=== PATIENT | female | born 1935 | race Two or more races ===

== ENCOUNTER 2021-09-14 13:17 | Inpatient (IN) | payer MEDICARE, OTHER ==
[~2021-09-14] VITALS: Ht 160 cm; Wt 59.0 kg
--- NOTE | 2021-09-14 13:35 | NUR ---
[id number] FROM [facility] C/O WEAKNESS, PER EMS [employer] CALLED THEM TO DIRECTOR SALES WHO'S BEEN WANDERING AROUND APARTMENT X2 DAYS. PLACED COMFORTABLY IN BED. VITALS CHECKED.
--- NOTE | 2021-09-14 14:00 | NUR ---
DR ANTUNEZ MADE AWARE ABOUT BRIEF HX OF PATIENT
[2021-09-14] MEDS ORDERED: PANT40TA49 PO (14:04)
[2021-09-14] MEDS ORDERED: LEVO75TA7 PO (14:04)
[2021-09-14] MEDS ORDERED: TENO300T5 PO (14:04)
[2021-09-14] MEDS ORDERED: POTA20TA83 PO (14:04)
[2021-09-14] MEDS ORDERED: FURO20TA4 PO (14:04)
[2021-09-14] MEDS ORDERED: METO-358 PO (14:04)
[2021-09-14] MEDS ORDERED: LISI40TA13 PO (14:04)
[2021-09-14] MEDS ORDERED: AMLO-212 PO (14:04)
--- NOTE | 2021-09-14 14:11 | NUR ---
IV CANNULA G22 INSERTED ON LEFT UPPER ARM.
--- NOTE | 2021-09-14 14:11 | NUR ---
COVID SWAB DONE
--- NOTE | 2021-09-14 14:13 | NUR ---
Luciano nj in [facility] - 09/14/21 at 1438 by RANJIT SEEN BY DR SANDOVAL AT BEDSIDE.
--- NOTE | 2021-09-14 14:30 | NUR ---
EKG DONE AT BEDSIDE.
--- NOTE | 2021-09-14 14:39 | NUR ---
PRESSURE TESTER OPERATOR AT BEDSIDE
--- NOTE | 2021-09-14 15:00 | NUR ---
CAME BACK FROM CT SCAN
[2021-09-14 15:02] LABS: BASOPHILS % (AUTO) 0.6 % (0.0-2.0); EOSINOPHILS % (AUTO) 2.9 % (0.0-6.0); HEMATOCRIT 34 % (33-45); HEMOGLOBIN 11.5 g/dL (11.5-14.8); LYMPHOCYTES # (AUTO) 0.7 K/uL (0.8-4.8); LYMPHOCYTES % (AUTO) 16.4 % (20.0-44.0); MEAN CORPUSCULAR HGB CONC 34 g/dl (31.0-36.0); MEAN CORPUSCULAR VOLUME 91 fL (82-100); MONOCYTES # (AUTO) 0.5 K/uL (0.1-1.30); MONOCYTES % (AUTO) 11.4 % (2.0-12.0); NEUTROPHILS # (AUTO) 2.8 K/uL (1.8-8.9); NEUTROPHILS % (AUTO) 68.7 % (43.0-81.0); PLATELET COUNT (AUTO) 96 K/uL (150-450); RED BLOOD CELL COUNT(AUTO) 3.71 MIL/uL (4.0-5.2)
[2021-09-14 15:08] LABS: CALCIUM, SERUM 8.7 mg/dL (8.5-10.1); CARBON DIOXIDE 24 mmol/L (21-32); CHLORIDE 108 mmol/L (98-107); CREATININE 0.8 mg/dL (0.6-1.3); GLUCOSE 128 mg/dL (74-106); POTASSIUM 3.8 mmol/L (3.5-5.1); SODIUM SERUM 142 mmol/L (136-145); UREA NITROGEN, BLOOD 19 mg/dL (7-18)
[2021-09-14 15:14] LABS: ALANINE AMINOTRANSFERASE 15 U/L (12-78); ALBUMIN 3.5 g/dL (3.4-5.0); ALKALINE PHOSPHATASE 63 U/L (46-116); ASPARTATE AMINOTRANSFERASE 26 U/L (15-37); BILIRUBIN,DIRECT 0.2 mg/dL (0.0-0.2); BILIRUBIN,TOTAL 0.7 mg/dL (0.2-1.0); TOTAL PROTEIN, SERUM 6.6 g/dL (6.4-8.2)
[2021-09-14 16:33] LABS: BAND % (MANUAL) 2 % (0.0-5.0); LYMPHOCYTES % (MANUAL) 16 % (16-48)
[2021-09-14 16:34] LABS: EOSINOPHILS % (MANUAL) 3 % (0-4); MONOCYTES % (MANUAL) 10 % (0-11.0)
[2021-09-14 16:35] LABS: NEUTROPHILS % (MANUAL) 69 (42-76)
[2021-09-14 17:11] LABS: BILIRUBIN,URINE NEGATIVE (NEGATIVE); COLOR,URINE YELLOW (YELLOW); LEUKOCYTE ESTERASE ,URINE SMALL (NEGATIVE); NITRITE, URINE NEGATIVE (NEGATIVE); PH,URINE 7.5 (5.0-8.0); PROTEIN,URINE NEGATIVE (NEGATIVE); UGLUCOSE NEGATIVE (NEGATIVE); UROBILINOGEN,URINE 0.2 EU/dL (0.2)
[2021-09-14 17:16] LABS: BACTERIA,URINE Few /HPF (None Seen)
[2021-09-14 17:17] LABS: SQUAMOUS EPITHELIAL CELL,UR Few /HPF (None Seen)
--- NOTE | 2021-09-14 17:40 | NUR ---
SEEN BY YUSUF HEART AT BEDSIDE.
[2021-09-14] MEDS ORDERED: ACETAMINOPHEN 325 MG TABLET PO PRN (18:00)
[2021-09-14] MEDS ORDERED: CEFTRIAXONE 1GM BAG (ER ONLY) 1 GM/50 ML PIGGYBACK IV ONE (18:00)
[2021-09-14] MEDS ORDERED: ONDANSETRON HCL/PF 4 MG/2 ML VIAL IVP PRN (18:00)
[2021-09-14] MEDS ORDERED: MORPHINE SULFATE INJ 2 MG/ML DISP.SYRIN IV PRN (18:00)
[2021-09-14] MEDS ORDERED: HYDROCODONE/APAP 5/325MG TABLET PO PRN (18:00)
[2021-09-14] MEDS ORDERED: ZOLPIDEM TARTRATE 5 MG TABLET PO PRN (18:00)
[2021-09-14] MEDS ORDERED: MAG HYDROX/AL HYDROX/SIMETH 30 ML UDC PO PRN (18:00)
[2021-09-14] MEDS ORDERED: MAGNESIUM HYDROXIDE 30 ML UDC PO PRN (18:00)
[2021-09-14] MEDS ORDERED: Z GUARD REMEDY 4 OZ OINT TP PRN (18:00)
--- NOTE | 2021-09-14 19:09 | NUR ---
PATIENT IS CONFUSED AND TRIED TO LEAVE
[2021-09-14] MEDS: LORAZEPAM INJ 2 MG/ML VIAL IV PRN (19:26)
--- NOTE | 2021-09-14 19:27 | NUR ---
PT NOTED WITH AGGITATION AND YELLING; NONPHARM INTERVENTIONS DONE BUT STILL AGGITATED. ATIVAN 1MG IVP RAC #22G S/L ADMINISTERED
[2021-09-14] MEDS ORDERED: ENOXAPARIN SODIUM 30 MG/0.3 ML DISP.SYRIN SQ SCH (19:47)
[2021-09-14] MEDS ORDERED: CEFTRIAXONE 1GM BAG (ER ONLY) 50 ML IV ONE (19:51)
[2021-09-14] MEDS ORDERED: ENOXAPARIN SODIUM 30 MG/0.3 ML DISP.SYRIN ONE (19:51)
[2021-09-14] MEDS ORDERED: FUROSEMIDE 40 MG/4 ML VIAL ONE (19:52)
[2021-09-14] MEDS ORDERED: METOPROLOL SUCCINATE 25 MG TAB.SR.24H ONE (19:52)
[2021-09-14] MEDS: CEFTRIAXONE 1 G in IV D5W 50 ML IV SCH (20:00)
[2021-09-14] MEDS: FUROSEMIDE 40 MG/4 ML VIAL IV SCH (20:00)
[2021-09-14] MEDS: METOPROLOL SUCCINATE 50 MG TAB.SR.24H PO SCH (20:00)
--- NOTE | 2021-09-14 20:38 | NUR ---
Raul [phone] (son)
--- NOTE | 2021-09-14 20:38 | NUR ---
PT SON AND DAUGHTER IN LAW UPDATE REGARDING THE PATIENT. THEY ARE AWARE THAT THE PATIENT IS GOING TO BE ADMITTED.
--- NOTE | 2021-09-14 20:56 | NUR ---
REPORT GIVEN TO BHARATH TEE.
[2021-09-14 21:10] VITALS: BP 160/81
--- NOTE | 2021-09-14 21:30 | NUR ---
MS RN NOTES ATTEMPTED TO CALL SON, , NO ANSWER; VOICEMAIL WAS LEFT FOR SON TO CALL HOSPITAL BACK, CHARGE NURSE MADE AWARE; UNABLE TO OBTAIN INFORMATION FROM PATIENT D/T MENTAL STATUS; WILL CONT TO MONITOR;
--- NOTE | 2021-09-14 21:31 | NUR ---
MEDICAL STAFF SPECIALIST/OPENING NOTE PATIENT ARRIVED TO UNIT ACCOMPANIED BY ER STAFF, AWAKE, CONFUSED AND AGITATED, YELLING IN TAGALOG; ANGRY AT STAFF; PATIENT ON ROOM AIR WITH NO SIGNS OF LABORED BREATHING, LEFT UPPER ARM 22G IV IN PLACE; NO SIGNS OF ACUTE DISTRESS NOTED AT THIS TIME. BLE EDEMA NOTED, R ARM DISCOLORATION AND SACRAL REDNESS POA; PICTURES TAKEN AND PLACED IN CHART; SAFETY PRECAUTIONS IMPLEMENTED; BED LOCKED AND IN LOWEST POSITION, 3 SIDE RAILS UP, WILL CONT TO MONITOR
--- NOTE | 2021-09-14 22:51 | NUR ---
MS RN NOTE PATIENT CONFUSED, AGITATED, REMOVING IV LINES AND CLOTHES; CONSTANTLY YELLING OUT AT STAFF; CHARGE NURSE AWARE; ASL INTERPRETER MD MADE AWARE, AWAITING MD ORDERS
--- NOTE | 2021-09-14 22:54 | NUR ---
MS RN NOTES PER GREEN CHAIN OFF BEARER YOLANDA SNOW FOR 1:1 SITTER, CHARGE NURSE MADE AWARE, NURSING HEARING AID TECHNICIAN MADE AWARE. WILL CONT TO MONITOR
--- NOTE | 2021-09-15 02:43 | NUR ---
MS RN NOTES PER MD YAKOV, YOLANDA FOR BILATERAL WRIST RESTRAINTS IF NO SITTER IS AVAILABLE; ORDES RENDERED AND CARRIED OUT, CHARGE NURSE MADE AWARE; WILL CONT TO MONITOR
--- NOTE | 2021-09-15 05:43 | NUR ---
MS RN NOTES TELESALES REPRESENTATIVE AT BEDSIDE, UNABLE TO DRAW BLOOD. PATIENT IS HARD STICK, WILL ATTEMPT AGAIN LATER; WILL INFORM DAY SHIFT
--- NOTE | 2021-09-15 06:13 | NUR ---
MS RN NOTES PATIENT HARD STICK, 2 HARD CANDY SPINNER ATTEMPTED, WILL TRY AGAIN LATER, WILL INFORM DAY SHIFT
--- NOTE | 2021-09-15 06:46 | NUR ---
RN CLOSING NOTES NOTE PATIENT IN BED, AWAKE, CONFUSED AND AGITATED, YELLING IN TAGALOG; YELLING OUT AT STAFF AND TO SELF; PATIENT ON ROOM AIR WITH NO SIGNS OF LABORED BREATHING, LEFT UPPER ARM 22G IV IN PLACE; NO SIGNS OF ACUTE DISTRESS NOTED AT THIS TIME. BLE EDEMA NOTED, BILATERAL SOFT WRIST RESTRAINTS APPLIED; ALL NEEDS RENDERED; SAFETY PRECAUTIONS IMPLEMENTED; BED LOCKED AND IN LOWEST POSITION, 3 SIDE RAILS UP, WILL ENDORSE SONAL TO ONCOMING SHIFT
--- NOTE | 2021-09-15 07:27 | NUR ---
RN OPENING NOTE- PATIENT IN BED, AWAKE; PATIENT ON ROOM AIR WITH NO SIGNS OF LABORED BREATHING, LEFT UPPER ARM 22G IV IN PLACE; NO SIGNS OF ACUTE DISTRESS NOTED AT THIS TIME. BLE EDEMA NOTED, BILATERAL SOFT WRIST RESTRAINTS IN PLACE .SAFETY PRECAUTIONS IMPLEMENTED; BED LOCKED AND IN LOWEST POSITION, MONITOR/ ASSIST
[2021-09-15 07:45] LABS: CALCIUM, SERUM 9.4 mg/dL (8.5-10.1); CREATININE 0.8 mg/dL (0.6-1.3); MAGNESIUM 2.3 mg/dL (1.8-2.4); PHOSPHORUS 3.2 mg/dL (2.5-4.9); POTASSIUM 3.5 mmol/L (3.5-5.1)
[2021-09-15 07:55] LABS: THYROID STIMULATING HORMONE 1.839 uIU/mL (0.358-3.74)
[2021-09-15] MEDS: LEVOTHYROXINE SODIUM 75 MCG TABLET PO SCH (08:00)
[2021-09-15] MEDS: PANTOPRAZOLE 40 MG TABLET.DR PO SCH (08:00)
[2021-09-15] MEDS: AMLODIPINE BESYLATE 5 MG TABLET PO SCH ×2 (08:28→08:48)
[2021-09-15] MEDS: FUROSEMIDE 40 MG/4 ML VIAL IV SCH ×2 (08:28→08:49)
[2021-09-15] MEDS: POTASSIUM CHLORIDE 20 MEQ TAB.PRT.SR PO SCH ×2 (08:28→08:48)
[2021-09-15 08:35] LABS: BASOPHILS % (AUTO) 0.6 % (0.0-2.0); HEMATOCRIT 40 % (33-45); HEMOGLOBIN 13.6 g/dL (11.5-14.8); LYMPHOCYTES # (AUTO) 0.7 K/uL (0.8-4.8); LYMPHOCYTES % (AUTO) 13.9 % (20.0-44.0); MEAN CORPUSCULAR HGB CONC 34 g/dl (31.0-36.0); MEAN CORPUSCULAR VOLUME 91 fL (82-100); MONOCYTES # (AUTO) 0.6 K/uL (0.1-1.30); MONOCYTES % (AUTO) 11.8 % (2.0-12.0); NEUTROPHILS # (AUTO) 3.5 K/uL (1.8-8.9); NEUTROPHILS % (AUTO) 70.7 % (43.0-81.0); PLATELET COUNT (AUTO) 91 K/uL (150-450); RED BLOOD CELL COUNT(AUTO) 4.37 MIL/uL (4.0-5.2)
[2021-09-15] MEDS: TENOFOVIR DISOPROXIL FUMARATE 300 MG TABLET PO SCH ×2 (08:35→08:49)
[2021-09-15 08:37] VITALS: BP 152/80
[2021-09-15] MEDS: QUETIAPINE FUMARATE 25 MG TABLET PO ONE ×2 (08:37→08:49)
[2021-09-15] MEDS ORDERED: FUROSEMIDE 20 MG TABLET PO SCH (09:00)
[2021-09-15] MEDS ORDERED: OLANZAPINE 10 MG VIAL IM ONE (09:00)
--- NOTE | 2021-09-15 09:33 | NUR ---
WOUND CARE CONSULT: DIFFICULT ASSESSMENT DUE TO PT VERY COMBATIVE. BLANCHABLE REDNESS NOTED TO SACRUM. PT KICKING AND SCRATCHING AT NURSES. PT IS INCONTINENT. RECOMMENDATIONS MADE FOR SKIN PROTECTION. DISCUSSED WITH NURSING STAFF. MD IN AGREEMENT WITH PLAN OF CARE.
[2021-09-15] MEDS: LORAZEPAM INJ 2 MG/ML VIAL IV PRN ×2 (12:47→21:19)
--- NOTE | 2021-09-15 12:50 | NUR ---
RN NOTE- ANXIOUS, YELLING , OPPOSITIONAL TO CARE. ATIVAN 1 MG ADMINISTERED IVP
[2021-09-15 16:14] VITALS: BP 150/78
[2021-09-15] MEDS: QUETIAPINE FUMARATE 25 MG TABLET PO SCH (16:21)
[2021-09-15] MEDS: METOPROLOL SUCCINATE 50 MG TAB.SR.24H PO SCH (17:31)
[2021-09-15] MEDS: CEFTRIAXONE 1 G in IV D5W 50 ML IV SCH (17:34)
--- NOTE | 2021-09-15 18:32 | NUR ---
RN CLOSING NOTE- PATIENT IN BED, ASLEEP; PATIENT ON ROOM AIR WITH NO SIGNS OF LABORED BREATHING, LEFT UPPER ARM 22G IV IN PLACE; NO SIGNS OF ACUTE DISTRESS NOTED AT THIS TIME. BLE EDEMA NOTED, BILATERAL SOFT WRIST RESTRAINTS IN PLACE .SAFETY PRECAUTIONS IMPLEMENTED; BED LOCKED AND IN LOWEST POSITION, MONITOR/ ASSIST
--- NOTE | 2021-09-15 19:20 | NUR ---
RN OPENING NOTE PATIENT IN BED, EYES CLOSED. PATIENT EASILY AWAKENED VIA VERBAL AND TOUCH STIMULI. PATIENT IS UNABLE TO MAKE NEEDS KNOWN, CONFUSED AND DISORIENTED. PATIENT MUMBLING IN TAGALOG. PATIENT IS ON RA, NO SOB, BREATHING EVEN AND UNLABORED. PATIENT HAS MICHAEL SOFT WRIST RESTRAINTS ON. NO INJURIES OR REDNESS NOTED. PATIENT HAS A BHAVNA G 22, SALINE LOCKED ONLY AND A DANIELITO MIDLINE PATIENT AND INTACT. PATIENT DOES NOT HAVE ANY PAIN AT THIS TIME VIA FLACC. SAFETY MEASURES IN PLACE: BED LOCKED AND IN LOWEST POSITION, CALL LIGHT WITHIN REACH, SIDE RAILS UP. WILL MONITOR PATIENT CLOSELY.
[2021-09-15 20:00] VITALS: BP 158/72
--- NOTE | 2021-09-15 23:17 | NUR ---
MS RN NOTES DR. QUIROS AT BEDSIDE FOR PSYCH CONSULT, UNABLE TO COMPLETE, PATIENT IS ASLEEP; PER MD, WILL BE BACK TOMORROW AM, CHARGE NURSE AWARE;
--- NOTE | 2021-09-15 23:30 | NUR ---
RN SONAL NOTE TRANSFERRED PATIENT CARE TO KRISTEL SINHA. PATIENT STABLE AT THIS TIME. NOT IN ANY APPARENT DISTRESS. VSS STABLE.
--- NOTE | 2021-09-15 23:32 | NUR ---
MS RN NOTES RECEIVED ENDORSEMENT FROM BHARATH SALINAS. WILL CONTINUE TO MONITOR
[2021-09-16 06:07] LABS: *BASOS 0 % (Not Estab.); *EOS 1 % (Not Estab.); *EOS, ABSOLUTE 0.1 x10E3/uL (0.0-0.4); *HCT 39.6 % (34.0-46.6); *HGB 13.4 g/dL (11.1-15.9); *IMMATURE GRANULOCYTES 0 % (Not Estab.); *LYMPHOCYTES 14 % (Not Estab.); *LYMPHS, ABSOLUTE 0.7 x10E3/uL (0.7-3.1); *MCH 30.5 pg (26.6-33.0); *MCHC 33.8 g/dL (31.5-35.7); *MCV 90 fL (79-97); *MONOCYTES 12 % (Not Estab.); *MONOS, ABSOLUTE 0.6 x10E3/uL (0.1-0.9); *NEUTROPHILS 73 % (Not Estab.); *NEUTROPHILS, ABSOLUTE 3.5 x10E3/uL (1.4-7.0); *PLT 110 x10E3/uL (150-450); *RDW 13.8 % (11.7-15.4)
--- NOTE | 2021-09-16 07:08 | NUR ---
RN CLOSING NOTES NOTE PATIENT IN BED, SLEEPING; PATIENT ON ROOM AIR WITH NO SIGNS OF LABORED BREATHING, LEFT UPPER ARM 22G IV IN PLACE; DANIELITO #18 MIDLINE; NO SIGNS OF ACUTE DISTRESS NOTED AT THIS TIME. BLE EDEMA NOTED, BILATERAL SOFT WRIST RESTRAINTS APPLIED; SKIN CHECKS DONE, ALL NEEDS RENDERED; SAFETY PRECAUTIONS IMPLEMENTED; BED LOCKED AND IN LOWEST POSITION, 3 SIDE RAILS UP, WILL ENDORSE SONAL TO ONCOMING SHIFT
[2021-09-16 08:00] VITALS: BP 120/82
[2021-09-16 10:08] LABS: *% CD 4 POS. LYMPH 34.6 % (30.8-58.5); *% CD 8 POS. LYMPH 19.9 % (12.0-35.5); *ABSOLUTE CD 4 HELPER 242 /uL (359-1519); *ABSOLUTE CD 8 SUPPRESSOR 139 /uL (109-897); *CD4/CD8 RATIO 1.74 (0.92-3.72)
[2021-09-16] MEDS: POTASSIUM CHLORIDE 20 MEQ TAB.PRT.SR PO SCH (11:00)
[2021-09-16] MEDS: LEVOTHYROXINE SODIUM 75 MCG TABLET PO SCH (11:00)
[2021-09-16] MEDS: TENOFOVIR DISOPROXIL FUMARATE 300 MG TABLET PO SCH (11:00)
[2021-09-16] MEDS: PANTOPRAZOLE 40 MG TABLET.DR PO SCH (11:00)
[2021-09-16] MEDS: AMLODIPINE BESYLATE 5 MG TABLET PO SCH (11:03)
[2021-09-16] MEDS: QUETIAPINE FUMARATE 25 MG TABLET PO SCH (11:04)
--- NOTE | 2021-09-16 13:54 | NUR ---
ivon iv infiltrated and removed.
[2021-09-16 16:00] VITALS: BP 141/78
[2021-09-16] MEDS ORDERED: risperiDONE 0.25 MG TABLET PO SCH (17:30)
[2021-09-16] MEDS ORDERED: HALOPERIDOL LACTATE INJ 5 MG/ML VIAL IM PRN (17:30)
[2021-09-16] MEDS ORDERED: RIVASTIGMINE TARTRATE 1.5 MG CAPSULE PO SCH (17:30)
[2021-09-16] MEDS ORDERED: HALOPERIDOL 1 MG TABLET PO PRN (17:30)
--- NOTE | 2021-09-16 18:00 | NUR ---
DR. QUIROS IN AND MADE MED CHANGES.
--- NOTE | 2021-09-16 19:44 | NUR ---
RN OPENING NOTE PATIENT IN BED, SLEEPING; PATIENT ON ROOM AIR WITH NO SIGNS OF LABORED BREATHING, LEFT UPPER ARM 22G IV IN PLACE; DANIELITO #18 MIDLINE; NO SIGNS OF ACUTE DISTRESS NOTED AT THIS TIME. BLE EDEMA NOTED, BILATERAL SOFT WRIST RESTRAINTS APPLIED; SKIN CHECKS DONE, ALL NEEDS RENDERED; SAFETY PRECAUTIONS IMPLEMENTED; BED LOCKED AND IN LOWEST POSITION, 3 SIDE RAILS UP, WILL CONTINUE TO MONITOR.
[2021-09-16] MEDS: CEFTRIAXONE 1 G in IV D5W 50 ML IV SCH (19:48)
[2021-09-16] MEDS: RIVASTIGMINE TARTRATE 1.5 MG CAPSULE PO SCH (20:00)
[2021-09-16] MEDS: risperiDONE 0.25 MG TABLET PO SCH (20:00)
[2021-09-16 20:26] VITALS: BP 140/62
[2021-09-16] MEDS: MIRTAZAPINE 15 MG TABLET PO SCH (21:39)
[2021-09-16] MEDS: METOPROLOL SUCCINATE 50 MG TAB.SR.24H PO SCH (21:39)
[2021-09-17 00:51] VITALS: BP 137/69
--- NOTE | 2021-09-17 05:48 | NUR ---
MS RN NOTES MEDICATION WAS CRUSHED AND TRIED TO ADMINISTER PT REFUSING SAYING SHE NO LONGER HAS PAIN DISCARDED MEDICATION WITH SECOND RN ISABELLE. ALL NEEDS ATTENDED TO WILL CONTINUE TO MONITOR.
[2021-09-17 06:31] LABS: BASOPHILS # (AUTO) 0.1 K/uL (0.0-0.2); BASOPHILS % (AUTO) 0.9 % (0.0-2.0); EOSINOPHILS % (AUTO) 0.1 % (0.0-6.0); HEMATOCRIT 38 % (33-45); HEMOGLOBIN 12.8 g/dL (11.5-14.8); LYMPHOCYTES # (AUTO) 0.8 K/uL (0.8-4.8); LYMPHOCYTES % (AUTO) 9.9 % (20.0-44.0); MEAN CORPUSCULAR HGB CONC 34 g/dl (31.0-36.0); MEAN CORPUSCULAR VOLUME 91 fL (82-100); MONOCYTES # (AUTO) 1.5 K/uL (0.1-1.30); MONOCYTES % (AUTO) 18.7 % (2.0-12.0); NEUTROPHILS # (AUTO) 5.7 K/uL (1.8-8.9); NEUTROPHILS % (AUTO) 70.4 % (43.0-81.0); PLATELET COUNT (AUTO) 125 K/uL (150-450); RED BLOOD CELL COUNT(AUTO) 4.16 MIL/uL (4.0-5.2); WHITE BLOOD COUNT (AUTO) 8.1 K/uL (4.3-11.0)
[2021-09-17 06:59] LABS: CALCIUM, SERUM 8.9 mg/dL (8.5-10.1); POTASSIUM 4.5 mmol/L (3.5-5.1)
--- NOTE | 2021-09-17 07:03 | NUR ---
RN CLOSING NOTE PATIENT IN BED, SLEEPING; PATIENT ON ROOM AIR WITH NO SIGNS OF LABORED BREATHING, LEFT UPPER ARM 22G IV IN PLACE; DANIELITO #18 MIDLINE; NO SIGNS OF ACUTE DISTRESS NOTED AT THIS TIME. BLE EDEMA NOTED, BILATERAL SOFT WRIST RESTRAINTS APPLIED; SKIN CHECKS DONE, ALL NEEDS RENDERED; SAFETY PRECAUTIONS IMPLEMENTED; BED LOCKED AND IN LOWEST POSITION, 3 SIDE RAILS UP, WILL ENDORSE CARE TO DAY SHIFT NURSE.
[2021-09-17] MEDS: AMLODIPINE BESYLATE 5 MG TABLET PO SCH (07:52)
[2021-09-17] MEDS: LEVOTHYROXINE SODIUM 75 MCG TABLET PO SCH (07:53)
[2021-09-17] MEDS: risperiDONE 0.25 MG TABLET PO SCH ×2 (07:53→20:04)
[2021-09-17] MEDS: PANTOPRAZOLE 40 MG TABLET.DR PO SCH (07:53)
[2021-09-17] MEDS: POTASSIUM CHLORIDE 20 MEQ TAB.PRT.SR PO SCH (07:53)
[2021-09-17] MEDS: RIVASTIGMINE TARTRATE 1.5 MG CAPSULE PO SCH ×2 (07:53→20:04)
[2021-09-17] MEDS: TENOFOVIR DISOPROXIL FUMARATE 300 MG TABLET PO SCH (07:55)
[2021-09-17 08:00] VITALS: BP 146/82
[2021-09-17 08:25] LABS: LYMPHOCYTES % (MANUAL) 9 % (16-48); MONOCYTES % (MANUAL) 17 % (0-11.0); NEUTROPHILS % (MANUAL) 74 (42-76)
[2021-09-17] MEDS ORDERED: risperiDONE 0.25 MG TABLET PO SCH (09:00)
[2021-09-17 16:00] VITALS: BP 142/67
[2021-09-17] MEDS: CEFTRIAXONE 1 G in IV D5W 50 ML IV SCH (18:17)
--- NOTE | 2021-09-17 18:29 | NUR ---
yelling out from time to time.
--- NOTE | 2021-09-17 19:43 | NUR ---
RN OPENING NOTE PATIENT IN BED, SLEEPING; PATIENT ON ROOM AIR WITH NO SIGNS OF LABORED BREATHING, LEFT UPPER ARM 22G IV IN PLACE; DANIELITO #18 MIDLINE; NO SIGNS OF ACUTE DISTRESS NOTED AT THIS TIME. BLE EDEMA NOTED, BILATERAL SOFT WRIST RESTRAINTS APPLIED; SKIN CHECKS WILL BE DON. SAFETY PRECAUTIONS IMPLEMENTED; BED LOCKED AND IN LOWEST POSITION, 3 SIDE RAILS UP, WILL CONTINUE TO MONITOR.
[2021-09-17 20:00] VITALS: BP 139/61
[2021-09-17] MEDS: METOPROLOL SUCCINATE 50 MG TAB.SR.24H PO SCH (20:08)
[2021-09-17] MEDS: MIRTAZAPINE 15 MG TABLET PO SCH (22:11)
--- NOTE | 2021-09-18 06:38 | NUR ---
RN CLOSING NOTE PATIENT IN BED, SLEEPING; PATIENT ON ROOM AIR WITH NO SIGNS OF LABORED BREATHING, DANIELITO #18 MIDLINE; NO SIGNS OF ACUTE DISTRESS NOTED AT THIS TIME, BILATERAL SOFT WRIST RESTRAINTS APPLIED; SKIN CHECKS DONE Q2HRS SNACKS PROVIDED HYDRATION PROVIDED NEEDED. SAFETY PRECAUTIONS IMPLEMENTED; BED LOCKED AND IN LOWEST POSITION, 3 SIDE RAILS UP,WILL ENDORSE CARE TO DAY SHIFT NURSE.
[2021-09-18 06:46] LABS: BASOPHILS % (AUTO) 0.4 % (0.0-2.0); EOSINOPHILS % (AUTO) 0.3 % (0.0-6.0); HEMATOCRIT 34 % (33-45); HEMOGLOBIN 11.8 g/dL (11.5-14.8); LYMPHOCYTES # (AUTO) 0.7 K/uL (0.8-4.8); LYMPHOCYTES % (AUTO) 10.7 % (20.0-44.0); MEAN CORPUSCULAR HGB CONC 34 g/dl (31.0-36.0); MEAN CORPUSCULAR VOLUME 90 fL (82-100); MONOCYTES # (AUTO) 0.9 K/uL (0.1-1.30); MONOCYTES % (AUTO) 13.9 % (2.0-12.0); NEUTROPHILS % (AUTO) 74.7 % (43.0-81.0); PLATELET COUNT (AUTO) 72 K/uL (150-450); RED BLOOD CELL COUNT(AUTO) 3.83 MIL/uL (4.0-5.2); WHITE BLOOD COUNT (AUTO) 6.6 K/uL (4.3-11.0)
[2021-09-18 07:05] LABS: CREATININE 1.1 mg/dL (0.6-1.3); POTASSIUM 3.5 mmol/L (3.5-5.1)
--- NOTE | 2021-09-18 07:16 | NUR ---
MS RN OPENING NOTE PATIENT RECEIVED AWAKE IN BED. A/O X2. CONFUSED AND FORGETFUL. SPEAKS MOSTLY IN TAGALOG, DENIES PAIN AT THIS TIME. ON ROOM AIR, BREATHING EVEN AND UNLABORED. PT WITH B/L SOFT WRIST RESTRAINS ON, CIRCULATIONS WNL. DANIELITO MIDLINE G#18 INTACT AND PATENT. SAFETY PRECAUTIONS MAINTAINED: BED LOCKED AND IN LOWEST POSITION, SIDE RAILS-UP X3. WILL CONTINUE TO MONITOR PT CLOSELY.
[2021-09-18] MEDS: risperiDONE 0.25 MG TABLET PO SCH ×2 (07:50→20:41)
[2021-09-18] MEDS: PANTOPRAZOLE 40 MG TABLET.DR PO SCH (07:50)
[2021-09-18] MEDS: LEVOTHYROXINE SODIUM 75 MCG TABLET PO SCH (07:50)
[2021-09-18] MEDS: RIVASTIGMINE TARTRATE 1.5 MG CAPSULE PO SCH ×2 (07:50→20:40)
[2021-09-18] MEDS: POTASSIUM CHLORIDE 20 MEQ TAB.PRT.SR PO SCH (08:53)
[2021-09-18] MEDS: AMLODIPINE BESYLATE 5 MG TABLET PO SCH (08:56)
[2021-09-18 09:44] VITALS: BP 145/74
[2021-09-18] MEDS: TENOFOVIR DISOPROXIL FUMARATE 300 MG TABLET PO SCH (11:56)
[2021-09-18 16:00] VITALS: BP 126/56
[2021-09-18] MEDS: CEFTRIAXONE 1 G in IV D5W 50 ML IV SCH (17:41)
--- NOTE | 2021-09-18 18:41 | NUR ---
MS RN CLOSING NOTES PATIENT IN BED WATCHING TV AT THIS TIME. HOB ELEVATED. A/O X2. CONFUSED, FORGETFUL AGITATED ON AND OFF. SPEAKS MOSTLY IN TAGALOG BUT UNDERSTANDS M[place]K. ON ROOM AIR, BREATHING EVEN AND UNLABORED, NO SOB NOTED DURING THE DAY. B/L SOFT WRIST RESTRAINS IN PLACE, SKIN AND CIRCULATIONS WNL. DANIELITO MIDLINE G#18 INTACT AND PATENT. ALL NEEDS AND CARE PROVIDED WELL. SAFETY PRECAUTIONS MAINTAINED: BED LOCKED AND IN LOWEST POSITION, SIDE RAILS-UP X2. CALL LIGHT W/IN REACH. WILL ENDORSE SONAL TO SPARES SCHEDULER NURSE.
--- NOTE | 2021-09-18 19:15 | NUR ---
RN NOTE PT AWAKE IN BED, A/OX2, CONFUSED, HYPERVERBAL. RESPIRATIONS EVEN/UNLABORED. NO S/S OF PAIN NOTED. MICHAEL. SOFT WRIST RESTRAINTS WERE IN PLACE AND REMOVED. SITTER AT BEDSIDE. IV ACCESS: DANIELITO ML INTACT/PATENT/FLUSHES WELL. PT IN NO ACUTE DISTRESS. SAFETY MEASURES IN PLACE. WILL CONT TO MONITOR.
[2021-09-18 20:00] VITALS: BP 151/74
[2021-09-18] MEDS: METOPROLOL SUCCINATE 50 MG TAB.SR.24H PO SCH (20:41)
[2021-09-18] MEDS: MIRTAZAPINE 15 MG TABLET PO SCH (21:36)
[2021-09-19] VITALS: BP 148/72
--- NOTE | 2021-09-19 06:53 | NUR ---
RN NOTE PT AWAKE, A/OX2, QUIET THIS MORNING. NO S/S OF PAIN. NO SOB. PT SLEPT INTERMITTENTLY DURING THE NIGHT. NO RESTRAINTS APPLIED. SITTER AT BEDSIDE. PT IN NO ACUTE DISTRESS. SAFETY MEASURES MAINTAINED.
[2021-09-19 07:00] LABS: CALCIUM, SERUM 9.1 mg/dL (8.5-10.1); CARBON DIOXIDE 25 mmol/L (21-32); CHLORIDE 106 mmol/L (98-107); CREATININE 0.8 mg/dL (0.6-1.3); GLUCOSE 118 mg/dL (74-106); POTASSIUM 3.7 mmol/L (3.5-5.1); SODIUM SERUM 142 mmol/L (136-145); UREA NITROGEN, BLOOD 29 mg/dL (7-18)
[2021-09-19 07:04] LABS: BASOPHILS % (AUTO) 0.2 % (0.0-2.0); EOSINOPHILS % (AUTO) 2.1 % (0.0-6.0); HEMATOCRIT 36 % (33-45); HEMOGLOBIN 12.2 g/dL (11.5-14.8); LYMPHOCYTES # (AUTO) 0.9 K/uL (0.8-4.8); LYMPHOCYTES % (AUTO) 15.1 % (20.0-44.0); MEAN CORPUSCULAR HGB CONC 34 g/dl (31.0-36.0); MEAN CORPUSCULAR VOLUME 91 fL (82-100); MONOCYTES # (AUTO) 0.6 K/uL (0.1-1.30); MONOCYTES % (AUTO) 9.6 % (2.0-12.0); NEUTROPHILS # (AUTO) 4.3 K/uL (1.8-8.9); PLATELET COUNT (AUTO) 85 K/uL (150-450); RED BLOOD CELL COUNT(AUTO) 4.01 MIL/uL (4.0-5.2); WHITE BLOOD COUNT (AUTO) 5.9 K/uL (4.3-11.0)
--- NOTE | 2021-09-19 07:30 | NUR ---
MS RN OPENING NOTE PATIENT RECEIVED AWAKE IN BED. A/O X1-2. CONFUSED AND FORGETFUL. SPEAKS MOSTLY IN TAGALOG, DENIES PAIN AT THIS TIME. ON ROOM AIR, BREATHING EVEN AND UNLABORED. SOFT RESTRAINS ARE OFF. CIRCULATIONS WNL. DANIELITO MIDLINE G#18 INTACT AND PATENT. SAFETY PRECAUTIONS MAINTAINED: BED LOCKED AND IN LOWEST POSITION, ALARM ON, SIDE RAILS-UP X3. WILL CONTINUE TO MONITOR PT CLOSELY.
[2021-09-19 08:00] VITALS: BP 125/84
[2021-09-19 08:01] VITALS: BP 128/93
[2021-09-19] MEDS: RIVASTIGMINE TARTRATE 1.5 MG CAPSULE PO SCH ×2 (08:02→20:35)
[2021-09-19] MEDS: PANTOPRAZOLE 40 MG TABLET.DR PO SCH ×2 (08:02→08:08)
[2021-09-19] MEDS: risperiDONE 0.25 MG TABLET PO SCH ×2 (08:02→20:35)
[2021-09-19] MEDS: LEVOTHYROXINE SODIUM 75 MCG TABLET PO SCH (08:04)
[2021-09-19] MEDS: POTASSIUM CHLORIDE 20 MEQ TAB.PRT.SR PO SCH (08:10)
[2021-09-19] MEDS: AMLODIPINE BESYLATE 5 MG TABLET PO SCH (08:17)
[2021-09-19] MEDS: TENOFOVIR DISOPROXIL FUMARATE 300 MG TABLET PO SCH (08:21)
--- NOTE | 2021-09-19 10:16 | NUR ---
WILBER Note: SW met with pt briefly to assess pt and pt appeared confused and hyperverbal. Pt's nurse Talisha near bedside while assessing pt, she reported that pt appeared to be calm today but yesterday she was uncooperative. Pt's behavior can be unpredictable. Pt appeared confused and was unable to further answer any questions.
--- NOTE | 2021-09-19 10:21 | NUR ---
Crisis Team: SW contacted Art ([phone]) for crisis evaluation. Art reported he will evaluate pt today 09/19/2021. SW notified treatment team.
[2021-09-19 16:00] VITALS: BP 125/84
[2021-09-19 16:45] LABS: LYMPHOCYTES % (MANUAL) 17 % (16-48); MONOCYTES % (MANUAL) 7 % (0-11.0); NEUTROPHILS % (MANUAL) 76 (42-76)
--- NOTE | 2021-09-19 18:58 | NUR ---
MS RN CLOSING NOTE PATIENT RECEIVED AWAKE IN BED. A/O X1-2. CONFUSED AND FORGETFUL, OCCASIONALLY GETS AGITATED. SPEAKS MOSTLY IN TAGALOG, DENIES PAIN AT THIS TIME. ON ROOM AIR TOLERATING WELL. SOFT RESTRAINTS REAPPLIED AND REASSESSED DURING SHIFT PER HOSPITAL PROTOCOL. CIRCULATIONS WNL. AM MEDS GIVEN. DANIELITO MIDLINE G#18 INTACT AND PATENT. SAFETY PRECAUTIONS MAINTAINED: BED LOCKED AND IN LOWEST POSITION, ALARM ON, SIDE RAILS-UP X3. WILL ENDORSE TO NEXT SHIFT.
--- NOTE | 2021-09-19 19:24 | NUR ---
MS RN OPENING NOTES RECEIVED PT LYING IN BED, HOB ELEVATED AT 75 DEGREES. A/O X1, CONFUSED BUT IN PLEASANT MOOD. TAGALOG SPEAKING, UNDERSTANDS [place]. DENIES PAIN AT THIS TIME. BREATHING EVEN AND NON-LABORED ON ROOM AIR. HAS SOFT BILATERAL WRIST RESTRAINTS. HAS DANIELITO MIDLINE #18G AND SALINE LOCKED. NO S/S OF INFILTRATION NOTED. SAFETY PRECAUTIONS IN PLACE. WILL CONTINUE PLAN OF CARE.
[2021-09-19 20:00] VITALS: BP 148/70
[2021-09-19] MEDS: METOPROLOL SUCCINATE 50 MG TAB.SR.24H PO SCH (20:38)
[2021-09-19] MEDS: MIRTAZAPINE 15 MG TABLET PO SCH (21:14)
--- NOTE | 2021-09-20 06:15 | NUR ---
MS RN CLOSING NOTES PT LYING IN BED ASLEEP. EASY TO AROUSE. SITTER ON BEDSIDE. A/O X1, CONFUSED. TAGALOG SPEAKING. WITH PERIODS OF YELLING AND AGITATION. NO C/O PAIN OR DISCOMFORT AT THIS TIME. NO ACUTE DISTRESS NOTED. NO SOB OR , TOLERATING ROOM AIR WELL. AFEBRILE. HAS DANIELITO MIDLINE #18G AND SALINE LOCKED. INTACT, PATENT AND FLUSHING. ALL NEEDS ATTENDED. KEPT DRY AND COMFORTABLE. SAFETY PRECAUTIONS IN PLACED: BED LOW AND LOCKED, SIDE RAILS UP X3, CALL LIGHT WITHIN REACH.
--- NOTE | 2021-09-20 08:25 | NUR ---
ms rn received on bed, awake, oriented x1,confuse, not in any form of distress, respirations even and unlabored,no sob noted, lungs are diminish,abdomen soft,positive bowel sounds,denies pain at this time,all needs attended.
--- NOTE | 2021-09-20 09:20 | NUR ---
ms azevedo breakfast served,due meds given,tolerated well.
--- NOTE | 2021-09-20 10:00 | NUR ---
ms rn patient is w/ sitter for safety and comfort.was seen by dr. hagen w/ order to ok to transfer to gps today.
[2021-09-20] MEDS: risperiDONE 0.25 MG TABLET PO SCH (11:19)
[2021-09-20 11:20] VITALS: BP 110/60
[2021-09-20] MEDS: POTASSIUM CHLORIDE 20 MEQ TAB.PRT.SR PO SCH (11:20)
[2021-09-20] MEDS: AMLODIPINE BESYLATE 5 MG TABLET PO SCH (11:20)
[2021-09-20] MEDS: RIVASTIGMINE TARTRATE 1.5 MG CAPSULE PO SCH (11:20)
[2021-09-20] MEDS: LEVOTHYROXINE SODIUM 75 MCG TABLET PO SCH (11:21)
[2021-09-20] MEDS: TENOFOVIR DISOPROXIL FUMARATE 300 MG TABLET PO SCH (11:22)
--- NOTE | 2021-09-20 16:45 | NUR ---
ms rn patient transferred to gps, no distress noted, report given to
[2021-09-20] MEDS ORDERED: [UNRECOGNIZED DRUG - OTHER] PO (20:15)
[2021-09-20] MEDS ORDERED: RISP0.5T65 PO (20:15)
[2021-09-20] MEDS ORDERED: MIRT-90 PO (20:15)
== END 2021-09-20 16:50 | DRG 689 ==
LOC: EDBD 13:44 → ER 13:44 → TRANSITION 19:29 → MED 20:41
PROVIDERS: ADMIT Nurse Practitioner Acute Care
PROC: 05HB33Z Insertion of Infusion Device into Right Basilic Vein, Percutaneous Approach (ICD-10-PCS; principal; 2021-09-15)
DX: N39.0 Urinary tract infection, site not specified (principal); G93.41 Metabolic encephalopathy; I50.33 Acute on chronic diastolic (congestive) heart failure; I31.3 Pericardial effusion (noninflammatory); F23 Brief psychotic disorder; I11.0 Hypertensive heart disease with heart failure; F01.50 Vascular dementia, unspecified severity, without behavioral disturbance, psychotic disturbance, mood disturbance, and anxiety; Z20.822 Contact with and (suspected) exposure to COVID-19; Z79.899 Other long term (current) drug therapy; Z86.73 Personal history of transient ischemic attack (TIA), and cerebral infarction without residual deficits; E03.9 Hypothyroidism, unspecified; G31.9 Degenerative disease of nervous system, unspecified; F02.80 Dementia in other diseases classified elsewhere, unspecified severity, without behavioral disturbance, psychotic disturbance, mood disturbance, and anxiety; B96.89 Other specified bacterial agents as the cause of diseases classified elsewhere; I35.1 Nonrheumatic aortic (valve) insufficiency; F32.A Depression, unspecified
CPT/HCPCS: 36410; 36415; 70450-TC; 71045-TC; 80048-TC; 80076-TC; 81001; 83735-TC; 84100-TC; 84443-TC; 84484-TC; 85025-TC; 86360; 87081-TC; 87086-TC; 93307-TC; 97112-TC; 97530-TC; C9803; G0378; J0696; J1650; J1940; J2060; J2270; J2405; J3490; J7050; J7060

== ENCOUNTER 2021-09-20 17:29 | Inpatient (IN) | payer MEDICARE, OTHER ==
[~2021-09-20] VITALS: Ht 160 cm; Wt 59.0 kg
[~2021-09-20 17:29] MED LIST: AMLO-212 PO; FURO20TA4 PO; LEVO75TA7 PO; LISI40TA13 PO; METO-358 PO; PANT40TA49 PO; POTA20TA83 PO; TENO300T5 PO
--- NOTE | 2021-09-20 17:40 | NUR ---
GPS/RN PT RECEIVED FROM [facility] MS DIRECT ADMIT ON 5150 GD. CONFUSED TAGALOG/MONGOLIAN SPEAKING. VSS. NO ACUTE DISTRESS NOTED. ON FACE TO FACE ASSESSMENT NO SI OR HI REPORTED.PROPERTY CHECKED FOR CONTRABAND. ADMITTING ORDERS FROM SHAKEEL GOLDBERG RECEIVED AND CARRIED OUT. PT UNABLE TO SIGN ADMITTING FORMS D/T CONFUSION. Addendum: 09/20/21 at 1908 by SAQIB MAHONEY RN Shakeel GOLDBERG gave an order of Ativan 0.5 mg po q6hr prn for anxiety agitation and Restoril 7.5 mg qhs prn for sleep.
[2021-09-20 17:50] VITALS: BP 124/73
[2021-09-20] MEDS ORDERED: MAGNESIUM HYDROXIDE 30 ML UDC PO PRN (18:00)
[2021-09-20] MEDS ORDERED: MAG HYDROX/AL HYDROX/SIMETH 30 ML UDC PO PRN (18:00)
[2021-09-20] MEDS ORDERED: BLOOD SUGAR DIAGNOSTIC 1 EACH STRIP IN ONE (18:00)
[2021-09-20] MEDS ORDERED: ACETAMINOPHEN 325 MG TABLET PO PRN (18:00)
--- NOTE | 2021-09-20 18:28 | NUR ---
GPS/RN Pt refused mrsa swab. offered x3. will endorse to film processing shift supervisor to follow up.
--- NOTE | 2021-09-20 19:05 | NUR ---
GPS LOG SORTER NOTES: ADMITTED AN 86-Y/O, FROM [facility]W. ADMITTED ON 5150 FOR GD. PER HOLD, PATIENT WAS CONFUSED, DISORIENTED AND DISORGANIZED. PATIENT RAMBLES INCOHERENTLY AND NOT EATING MUCH. UPON FACE TO FACE EVALUATION, PATIENT IS ALERT AND ORIENTED X1, CONFUSED, DISORGANIZED AND DISORIENTED. SKIN ASSESSMENT DONE. PATIENT HANDBOOK AND PRESCRIPTION MEDICATIONS GUIDE GIVEN TO PATIENT. PATIENT HAS BEEN ORIENTED TO UNIT POLICY. PATIENT IS UNDER THE PSYCHIATRIC CARE OF DR. QUIROS AND MEDICAL CARE OF YUSUF RAMOS. BED IN LOW LOCKED POSITION. SIDE RAILS UP X2. SAFETY PRECAUTIONS MAINTAINED. WILL CONTINUE TO MONITOR Q15 MINS FOR MOOD, SAFETY AND BEHAVIOR.
[2021-09-20 20:00] VITALS: BP 116/63
[2021-09-20] MEDS ORDERED: [UNRECOGNIZED DRUG - OTHER] PO (20:15)
[2021-09-20] MEDS ORDERED: RISP0.5T65 PO (20:15)
[2021-09-20] MEDS ORDERED: MIRT-90 PO (20:15)
[2021-09-20] MEDS ORDERED: risperiDONE 0.25 MG TABLET PO SCH (21:00)
[2021-09-20] MEDS: TEMAZEPAM 7.5 MG CAPSULE PO PRN (22:40)
[2021-09-21 04:06] VITALS: BP 116/63
[2021-09-21] MEDS: LEVOTHYROXINE SODIUM 75 MCG TABLET PO SCH (07:49)
[2021-09-21] MEDS: PANTOPRAZOLE 40 MG TABLET.DR PO SCH (07:49)
[2021-09-21 08:02] VITALS: BP_SYST 100; BP_SYST 110; BP_DIAS 59
[2021-09-21] MEDS: LISINOPRIL (20MG) 20 MG TABLET PO SCH (09:00)
[2021-09-21] MEDS: METOPROLOL SUCCINATE 50 MG TAB.SR.24H PO SCH (09:00)
[2021-09-21] MEDS: AMLODIPINE BESYLATE 5 MG TABLET PO SCH (09:00)
[2021-09-21] MEDS: POTASSIUM CHLORIDE 20 MEQ TAB.PRT.SR PO SCH (09:47)
[2021-09-21] MEDS: FUROSEMIDE 20 MG TABLET PO SCH (09:48)
[2021-09-21] MEDS: TENOFOVIR DISOPROXIL FUMARATE 300 MG TABLET PO SCH (09:50)
[2021-09-21] MEDS: risperiDONE 0.25 MG TABLET PO SCH ×2 (09:52→21:22)
--- NOTE | 2021-09-21 10:17 | NUR ---
RN-CO: PATIENT IS AWAKE DENIED PAIN AND DISCOMFORTS. CONFUSED AND NEEDS ASSISTANCE KWITH ADL. SHE IS ALSO DISORGANIZED. WE WILL CONTINUE PLAN OF CARE.
[2021-09-21 16:06] VITALS: BP 123/69
[2021-09-21 17:39] LABS: ALBUMIN 3.3 g/dL (3.4-5.0); BILIRUBIN,TOTAL 0.7 mg/dL (0.2-1.0); CALCIUM, SERUM 9.1 mg/dL (8.5-10.1); CREATININE 1.2 mg/dL (0.6-1.3); POTASSIUM 5.3 mmol/L (3.5-5.1); TOTAL PROTEIN, SERUM 7.2 g/dL (6.4-8.2)
[2021-09-21 17:42] LABS: CHOLESTEROL 151 mg/dL (<200); HDL CHOLESTEROL 36 mg/dL (40-60); LDL 102 mg/dL (0-99); TRIGLYCERIDES 65 mg/dL (30-150)
--- NOTE | 2021-09-21 19:15 | NUR ---
GPS RN NOTES PATIENT IN THE DINING ROOM SITTING IN A ISAÍAS CHAIR. ALERT AND ORIENTED X1. NO S/SX OF ACUTE DISTRESS NOTED. PATIENT REMAINS CONFUSED, DISORGANIZED, DISORIENTED. PATIENT NEEDS MAXIMUM ASSISTANCE WITH ADL'S. SAFETY PRECAUTIONS MAINTAINED. WILL CONTINUE TO MONITOR Q15MIN ROUNDS FOR SAFETY AND BEHAVIOR.
[2021-09-21 20:00] VITALS: BP 150/71
[2021-09-21] MEDS: MIRTAZAPINE 15 MG TABLET PO SCH (21:22)
[2021-09-21] MEDS: TEMAZEPAM 7.5 MG CAPSULE PO PRN (23:21)
[2021-09-22] MEDS: LEVOTHYROXINE SODIUM 75 MCG TABLET PO SCH (07:30)
[2021-09-22] MEDS: PANTOPRAZOLE 40 MG TABLET.DR PO SCH (07:30)
[2021-09-22 08:00] VITALS: BP 148/74
[2021-09-22] MEDS: FUROSEMIDE 20 MG TABLET PO SCH (09:05)
[2021-09-22] MEDS: AMLODIPINE BESYLATE 5 MG TABLET PO SCH (09:05)
[2021-09-22] MEDS: METOPROLOL SUCCINATE 50 MG TAB.SR.24H PO SCH (09:05)
[2021-09-22] MEDS: POTASSIUM CHLORIDE 20 MEQ TAB.PRT.SR PO SCH (09:06)
[2021-09-22] MEDS: risperiDONE 0.25 MG TABLET PO SCH ×2 (09:06→21:04)
[2021-09-22] MEDS: LISINOPRIL (20MG) 20 MG TABLET PO SCH (09:06)
[2021-09-22] MEDS: TENOFOVIR DISOPROXIL FUMARATE 300 MG TABLET PO SCH (09:06)
[2021-09-22] MEDS ORDERED: SODIUM POLYSTYRENE SULF. PWD 15 GM UDC PO ONE (13:00)
--- NOTE | 2021-09-22 13:01 | NUR ---
WILBER Clinical Note: Pt placed on a 5150 hold from medical floor. Pt placed on hold for GD. Pt appeared to be confused and disorganized. Unable to answer any questions. Pt has not been eating properly. Patient unable to state or give any information. Per case management, when pt was on the medical floor the immigration case manager was able to communicate with pt's son Raul ([phone]) who reported that pt lives [place] home [address], [place] [address]. Son had reported that pt has a caregiver at home through [facility] with 100 hours. She also has home health through [email or web address] (P: [phone], F:[phone]). SW attempted to contact son at different numbers ([phone], ) the number was unavailable. SW located another number ([phone]) and it went to voicemail straight. SW left a detailed voicemail.
--- NOTE | 2021-09-22 13:01 | NUR ---
WILBER Initial Discharge Plan: Patient unable to state or give any information. Per case management, when pt was on the medical floor the rn case management was able to communicate with pt's son Raul ([phone]) who reported that pt lives at home [address], [place] [address]. Son had reported that pt has a caregiver at home through [facility] with 100 hours. She also has home health through [employer] (P: [phone], F:[phone]). SW attempted to contact son at different numbers ([phone], ) the number was unavailable. SW located another number ([phone]) and it went to voicemail straight. SW left a detailed voicemail. WILBER will work with pt, family, and treatment team to help coordinate appropriate discharge.
--- NOTE | 2021-09-22 13:02 | NUR ---
WILBER Family Contact: SW attempted to contact son at different numbers ([phone], ) the number was unavailable. WILBER located another number ([phone]) and it went to voicemail straight. SW left a detailed voicemail.
--- NOTE | 2021-09-22 13:02 | NUR ---
Treatment Plan: Pt unable to sign treatment plan due to her confusion.
--- NOTE | 2021-09-22 15:55 | NUR ---
Individual Counseling: SW attempted to do individual counseling with pt. However, the pt. is currently disorganized, confused and and not appropriate for therapeutic milieu as pt. is unable to engage in meaningful conversation.
[2021-09-22 16:00] VITALS: BP 123/62
--- NOTE | 2021-09-22 19:13 | NUR ---
GPS RN NOTES PATIENT IN HER BED RESTING COMFORTABLY. PATIENT'S SON AT BEDSIDE SUPPORTIVE WITH CARE. ALERT AND ORIENTED X1. NO S/SX OF ACUTE DISTRESS NOTED. PATIENT REMAINS CONFUSED, DISORGANIZED, DISORIENTED. PATIENT NEEDS MAXIMUM ASSISTANCE WITH ADL'S. SAFETY PRECAUTIONS MAINTAINED. WILL CONTINUE TO MONITOR Q15MIN ROUNDS FOR SAFETY AND BEHAVIOR.
[2021-09-22 19:33] VITALS: BP 151/69
[2021-09-22] MEDS: MIRTAZAPINE 15 MG TABLET PO SCH (21:04)
[2021-09-22] MEDS: TEMAZEPAM 7.5 MG CAPSULE PO PRN (23:41)
[2021-09-23] MEDS: LORAZEPAM 0.5 MG TABLET PO PRN (02:45)
[2021-09-23] MEDS: LEVOTHYROXINE SODIUM 75 MCG TABLET PO SCH (07:30)
[2021-09-23] MEDS: PANTOPRAZOLE 40 MG TABLET.DR PO SCH (07:30)
[2021-09-23 08:00] VITALS: BP 135/80
--- NOTE | 2021-09-23 09:41 | NUR ---
WILBER Family Contact: SW attempted to contact son Raul ([phone]) and it went to voicemail straight. SW left a detailed voicemail.
[2021-09-23] MEDS: FUROSEMIDE 20 MG TABLET PO SCH (09:42)
[2021-09-23] MEDS: LISINOPRIL (20MG) 20 MG TABLET PO SCH (09:42)
[2021-09-23] MEDS: risperiDONE 0.25 MG TABLET PO SCH ×2 (09:42→21:29)
[2021-09-23] MEDS: METOPROLOL SUCCINATE 50 MG TAB.SR.24H PO SCH (09:43)
[2021-09-23] MEDS: AMLODIPINE BESYLATE 5 MG TABLET PO SCH (09:43)
[2021-09-23] MEDS: TENOFOVIR DISOPROXIL FUMARATE 300 MG TABLET PO SCH (09:50)
--- NOTE | 2021-09-23 12:03 | NUR ---
Court Notification: SW attempted to contact patient's son Raul ([phone]) to notify of 3719 hearing. Left a voicemail.
--- NOTE | 2021-09-23 13:40 | NUR ---
Court Hearing: Patient's court hearing for 5170 was today and it was upheld for GD.
[2021-09-23 16:00] VITALS: BP 121/69
[2021-09-23 19:38] VITALS: BP 118/47
[2021-09-23] MEDS: MIRTAZAPINE 15 MG TABLET PO SCH (21:29)
[2021-09-23] MEDS: TEMAZEPAM 7.5 MG CAPSULE PO PRN (23:10)
[2021-09-24 08:00] VITALS: BP 115/60
--- NOTE | 2021-09-24 08:24 | NUR ---
SNF REFERRAL: WILBER sent clinicals to Ladarius nelson from [facility] ([phone]) for placement. SW sent H & P, progress notes, and medication list.
[2021-09-24] MEDS: LISINOPRIL (20MG) 20 MG TABLET PO SCH (09:00)
[2021-09-24] MEDS: AMLODIPINE BESYLATE 5 MG TABLET PO SCH (09:00)
[2021-09-24] MEDS: METOPROLOL SUCCINATE 50 MG TAB.SR.24H PO SCH (09:00)
--- NOTE | 2021-09-24 09:34 | NUR ---
WILBER Family Contact: SW attempted to contact son Raul ([phone]) and it went to voicemail straight. SW left a detailed voicemail.
--- NOTE | 2021-09-24 09:41 | NUR ---
WILBER Family Contact: SW attempted to contact son Raul ([phone]) and left a detailed voicemail that this typewriter ribbon winder has been attempting to contact multiple times and has not reached out. WILBER reported that pt has been accepted at [facility] and will be discharged 09/25.
--- NOTE | 2021-09-24 09:42 | NUR ---
SNF Contact: SW spoke with Ladarius nelson from [facility] ([phone]) who stated pt is accepted.
[2021-09-24] MEDS: LEVOTHYROXINE SODIUM 75 MCG TABLET PO SCH (09:49)
[2021-09-24] MEDS: FUROSEMIDE 20 MG TABLET PO SCH (09:49)
[2021-09-24] MEDS: PANTOPRAZOLE 40 MG TABLET.DR PO SCH (09:49)
[2021-09-24] MEDS: risperiDONE 0.25 MG TABLET PO SCH ×2 (09:49→22:03)
[2021-09-24] MEDS: TENOFOVIR DISOPROXIL FUMARATE 300 MG TABLET PO SCH (09:49)
[2021-09-24] MEDS: LORAZEPAM 0.5 MG TABLET PO PRN (15:28)
--- NOTE | 2021-09-24 15:42 | NUR ---
attempting to give crushed ativan-initially refusing.
[2021-09-24 16:00] VITALS: BP 107/72
--- NOTE | 2021-09-24 16:02 | NUR ---
WILBER Family Contact: WILBER received a call from patient's daughter July ([phone]) who stated that pt's son Al is no long responsible of taking care of pt. WILBER informed that pt will be discharged 09/25/2021 to [facility] and she was agreeable with this plan.
[2021-09-24 20:00] VITALS: BP 136/67
[2021-09-24] MEDS: MIRTAZAPINE 15 MG TABLET PO SCH (22:04)
[2021-09-25 08:00] VITALS: BP 130/78
[2021-09-25] MEDS: LEVOTHYROXINE SODIUM 75 MCG TABLET PO SCH (08:00)
[2021-09-25] MEDS: LISINOPRIL (20MG) 20 MG TABLET PO SCH (08:00)
[2021-09-25] MEDS: PANTOPRAZOLE 40 MG TABLET.DR PO SCH (08:00)
[2021-09-25 08:02] VITALS: BP 130/78
[2021-09-25] MEDS: risperiDONE 0.25 MG TABLET PO SCH (08:02)
[2021-09-25] MEDS: AMLODIPINE BESYLATE 5 MG TABLET PO SCH (08:02)
[2021-09-25] MEDS: METOPROLOL SUCCINATE 50 MG TAB.SR.24H PO SCH (08:02)
[2021-09-25] MEDS: FUROSEMIDE 20 MG TABLET PO SCH (08:02)
[2021-09-25] MEDS: TENOFOVIR DISOPROXIL FUMARATE 300 MG TABLET PO SCH (08:03)
--- NOTE | 2021-09-25 08:05 | NUR ---
WILBER Discharge Note: Patient will be discharged to a [facility] located at [address], [place] [address]; ([phone]). Please arrange ambulance transportation. Room Service Food Server spoke with Phil, Real Estate Teacher at [facility] ([phone]) stated patient will be accepted at facility today. Patient is alert and oriented x1, and is not able to plan for self-care at this time, but is willing to accept care provided for her at the facility. Patient denies any suicidal or homicidal ideations. Patient is aware and agreeable with discharge plans. SW attempted to contact pts son Raul ([phone]) and left multiple voicemails. Patient will continue to follow-up with her (Psychiatrist) located at [address], [place] [address]; ([phone]) and (Shot Examiner) Dr. Stafford [address], [place] [address]; ([phone]). Patient presents with euthymic mood and congruent affect. .
--- NOTE | 2021-09-25 09:12 | NUR ---
Dr. Rosenbaum gave an order to d/c hold and d/c to [facility] and to follow up with psych and medical doctors. Dr. Rosenbaum reconciled on meds to continue in the facility. Pt. without distress, denies suicidal and homicidal.
--- NOTE | 2021-09-25 12:45 | NUR ---
Brock Sheppard NP was made aware of the discharge and reconciled on meds to continue in the facility. Belongings ready, discharge papers ready and pictures taken for skin issues. Report given to Porfirio over the facility.
--- NOTE | 2021-09-25 13:30 | NUR ---
Pt. left the unit via ambulance and transported via a gurney with belongings. Left without distress, v/s taken: BP 1113/58, IL 71, RR 18, temp 97.8 and oxygen sat 98%.
== END 2021-09-25 13:30 | DRG 881 ==
LOC: GPS 17:29
PROVIDERS: ADMIT Psychiatry & Neurology Psychiatry; ATTEND Nurse Practitioner Acute Care
DX: F32.A Depression, unspecified (principal); I11.0 Hypertensive heart disease with heart failure; F23 Brief psychotic disorder; F29 Unspecified psychosis not due to a substance or known physiological condition; F03.90 Unspecified dementia, unspecified severity, without behavioral disturbance, psychotic disturbance, mood disturbance, and anxiety; F41.9 Anxiety disorder, unspecified; Z73.6 Limitation of activities due to disability; R53.1 Weakness; R27.8 Other lack of coordination; Z91.81 History of falling; I50.9 Heart failure, unspecified; D69.6 Thrombocytopenia, unspecified; E03.9 Hypothyroidism, unspecified; E87.5 Hyperkalemia; K21.9 Gastro-esophageal reflux disease without esophagitis
CPT/HCPCS: 36415; 76770-TC; 80053-TC; 80061-TC; 84132-TC; 87081-TC; 97112-TC; 97116-TC; 97530-TC

== ENCOUNTER 2022-05-18 16:33 | Inpatient (IN) | payer MEDICARE, OTHER ==
[~2022-05-18] VITALS: Ht 160 cm; Wt 56.7 kg
[~2022-05-18 16:33] MED LIST changes: +MIRT-90 PO; +RISP0.5T65 PO; +[UNRECOGNIZED DRUG - OTHER] PO
[2022-05-18] MEDS ORDERED: HALOPERIDOL LACTATE INJ 5 MG/ML VIAL IM ONE (17:00)
[2022-05-18 17:27] LABS: BASOPHILS % (AUTO) 0.4 % (0.0-2.0); EOSINOPHILS % (AUTO) 1.8 % (0.0-6.0); HEMATOCRIT 35 % (33-45); HEMOGLOBIN 11.8 g/dL (11.5-14.8); LYMPHOCYTES % (AUTO) 22.1 % (20.0-44.0); MEAN CORPUSCULAR HGB CONC 34 g/dl (31.0-36.0); MEAN CORPUSCULAR VOLUME 91 fL (82-100); MONOCYTES # (AUTO) 0.5 K/uL (0.1-1.30); MONOCYTES % (AUTO) 10.3 % (2.0-12.0); NEUTROPHILS # (AUTO) 3.1 K/uL (1.8-8.9); NEUTROPHILS % (AUTO) 65.4 % (43.0-81.0); PLATELET COUNT (AUTO) 88 K/uL (150-450); RED BLOOD CELL COUNT(AUTO) 3.87 MIL/uL (4.0-5.2); WHITE BLOOD COUNT (AUTO) 4.7 K/uL (4.3-11.0)
[2022-05-18] MEDS ORDERED: HALOPERIDOL LACTATE INJ 5 MG/ML VIAL ONE (17:30)
[2022-05-18 18:08] LABS: LYMPHOCYTES % (MANUAL) 19 % (16-48); MONOCYTES % (MANUAL) 8 % (0-11.0); NEUTROPHILS % (MANUAL) 73 (42-76)
--- NOTE | 2022-05-18 18:11 | NUR ---
COVID SWAB COLLECTED AND SENT TO LAB
[2022-05-18 18:17] LABS: CALCIUM, SERUM 8.9 mg/dL (8.5-10.1); CARBON DIOXIDE 27 mmol/L (21-32); CHLORIDE 106 mmol/L (98-107); GLUCOSE 114 mg/dL (74-106); POTASSIUM 3.9 mmol/L (3.5-5.1); SODIUM SERUM 138 mmol/L (136-145); UREA NITROGEN, BLOOD 20 mg/dL (7-18)
[2022-05-18] MEDS ORDERED: QUET25TA PO (18:24)
[2022-05-18 18:26] LABS: ALANINE AMINOTRANSFERASE 19 U/L (12-78); ALBUMIN 3.5 g/dL (3.4-5.0); ALCOHOL, BLOOD < 3 mg/dL (0-0); ALKALINE PHOSPHATASE 62 U/L (46-116); ASPARTATE AMINOTRANSFERASE 22 U/L (15-37); BILIRUBIN,DIRECT 0.2 mg/dL (0.0-0.2); BILIRUBIN,TOTAL 0.6 mg/dL (0.2-1.0); TOTAL PROTEIN, SERUM 6.4 g/dL (6.4-8.2)
--- NOTE | 2022-05-18 18:26 | NUR ---
PAGED SALON STYLIST
[2022-05-18 18:28] LABS: ACETAMINOPHEN 0 ug/ml (10-30)
[2022-05-18 19:52] LABS: BILIRUBIN,URINE NEGATIVE (NEGATIVE); COLOR,URINE YELLOW (YELLOW); LEUKOCYTE ESTERASE ,URINE NEGATIVE (NEGATIVE); NITRITE, URINE NEGATIVE (NEGATIVE); PROTEIN,URINE NEGATIVE (NEGATIVE); UGLUCOSE NEGATIVE (NEGATIVE); UROBILINOGEN,URINE 0.2 EU/dL (0.2)
[2022-05-18 20:18] LABS: BACTERIA,URINE None seen /HPF (None Seen); WBC,URINE 0-2 /HPF (0-3)
--- NOTE | 2022-05-18 20:30 | NUR ---
REPORT GIVEN TO RN
[2022-05-18] MEDS ORDERED: CLONIDINE HCL 0.1 MG TABLET ONE ×2 (20:44→20:46)
[2022-05-18] MEDS ORDERED: CLONIDINE HCL 0.1 MG TABLET PO ONE (21:00)
[2022-05-18] MEDS ORDERED: CLONIDINE HCL 0.1 MG TABLET PO SCH (21:00)
--- NOTE | 2022-05-18 21:37 | NUR ---
PT TRANSFERRED TO VIA HOSPITAL PROTOCOL. VSS. ALL BELONGINGS WITH PT. Addendum: 05/18/22 at 2207 by LIYA PT TRANSFERRED TO GPS VIA HOSPITAL PROTOCOL. VSS. ALL BELONGINGS WITH PT.
[2022-05-18 21:45] VITALS: BP 140/70
--- NOTE | 2022-05-18 21:45 | NUR ---
BLIND TEACHER NOTE: ADMITTED AN 86-Y/O, FEMALE, FROM [facility], INITIALLY PT CAME FROM HOME. ADMITTED ON A 5150 FOR DTO/GD. PER HOLD, PATIENT HAS BEEN INCREASINGLY AGITATED AND CONFUSED. PT UNABLE TO ARTICULATE A FEASIBLE PLAN TO PROVIDE BASIC NECESSITIES FOR SELF EVEN WITH ASSISTANCE. UPON FACE TO FACE EVALUATION, PATIENT IS ALERT AND ORIENTED X2, GUARDED, BLUNTED AFFECT, ANXIOUS AT TIMES BUT COOPERATIVE TO CARE. PATIENT DENIES SI/HI/AVH AT THIS TIME. SKIN ASSESSMENT DONE. ALL BELONGINGS WERE CHECKED FOR CONTRABAND AND WAS KEPT IN PT'S ROOM LOCKER. PT WAS ADVISED OF HER HOLD. PT REFUSED TO SIGN ADMISSION PAPERWORK D/T CONFUSION. PATIENT'S RIGHTS WERE DISCUSSED AND BOOKLET WAS GIVEN. CONTACTED DR. ARNOLD AND HOSPITALIST DRY KILN OPERATOR HELPER [facility] AND INFORMED THEM OF THE ADMISSION. BED IN LOW AND LOCKED POSITION. SAFETY PRECAUTIONS MAINTAINED. WILL CONTINUE TO MONITOR Q15 MINS FOR MOOD, SAFETY AND BEHAVIOR.
[2022-05-18] MEDS ORDERED: BLOOD SUGAR DIAGNOSTIC 1 EACH STRIP IN ONE (22:00)
[2022-05-18] MEDS ORDERED: MAG HYDROX/AL HYDROX/SIMETH 30 ML UDC PO PRN (22:00)
[2022-05-18] MEDS ORDERED: MAGNESIUM HYDROXIDE 30 ML UDC PO PRN (22:00)
[2022-05-19] MEDS: LEVOTHYROXINE SODIUM 75 MCG TABLET PO SCH (07:04)
--- NOTE | 2022-05-19 07:35 | NUR ---
RN NOTE-PT LABILE, CONFUSED, IRRITABLE, ISOLATIVE AND DISHEVELED. MED COMPLIANT, OOB TO BR W FWW. PO INTAKE FAIR.
[2022-05-19 08:00] VITALS: BP 164/63
[2022-05-19 08:04] LABS: CHOLESTEROL 155 mg/dL (<200); HDL CHOLESTEROL 57 mg/dL (40-60); LDL 91 mg/dL (0-99); TRIGLYCERIDES 48 mg/dL (30-150)
[2022-05-19] MEDS: LISINOPRIL (20MG) 20 MG TABLET PO SCH (08:22)
[2022-05-19] MEDS: METOPROLOL SUCCINATE 50 MG TAB.SR.24H PO SCH (08:22)
[2022-05-19] MEDS: FUROSEMIDE 20 MG TABLET PO SCH (08:22)
[2022-05-19 08:42] LABS: CREATININE 0.7 mg/dL (0.6-1.3)
--- NOTE | 2022-05-19 08:51 | NUR ---
[facility] Clinical Note: Pt placed on a 5150 hold for GD. Per hold, pt has been agitated at home. Patient currently resides at home located at [address] [place] [address]; ([phone]). [facility] will contact pt's son Rayshawn ([phone]) to gather collateral. WILBER will work with the MD, family, and treatment team.
--- NOTE | 2022-05-19 08:51 | NUR ---
WILBER Initial Discharge Note: Patient currently resides at home located at [address] [place] [address]; ([phone]). WILBER will contact pt's son Rayshawn ([phone]) to gather collateral. WILBER will work with the MD, family, and treatment team.
--- NOTE | 2022-05-19 08:52 | NUR ---
Treatment Plan: Pt refused to sign treatment plan and was angry and tearful.
[2022-05-19] MEDS: TENOFOVIR DISOPROXIL FUMARATE 300 MG TABLET PO SCH (09:00)
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
--- NOTE | 2022-05-19 10:47 | NUR ---
APS Case: SW received a call from Radha ([phone]) who stated that pt has active case open and stated pt will need a placement.
[2022-05-19 16:00] VITALS: BP 188/76
--- NOTE | 2022-05-19 16:15 | NUR ---
RN NOTE- BP- 194/82, HR- 88. MENTAL MEASUREMENTS TEACHER RICCARDO NOTIFIED ORDERED APRESOLINE 50 MG PO Q8H. FIRST DOSE GIVEN DIRECTLY. MONITOR / RECHECK
[2022-05-19] MEDS: hydrALAZINE HCL 50 MG TABLET PO SCH ×2 (16:23→23:52)
--- NOTE | 2022-05-19 17:39 | NUR ---
RN NOTE- 153/69, HR- 65. APRESLANG AFFECTIVE, MONITOR
[2022-05-19 20:55] VITALS: BP 152/67
[2022-05-19] MEDS: OLANZAPINE ZYDIS 5 MG TAB.RAPDIS PO SCH (21:35)
[2022-05-20] MEDS: LEVOTHYROXINE SODIUM 75 MCG TABLET PO SCH ×2 (06:39→08:36)
[2022-05-20 08:00] VITALS: BP 160/82
[2022-05-20] MEDS: METOPROLOL SUCCINATE 50 MG TAB.SR.24H PO SCH (08:35)
[2022-05-20] MEDS: TENOFOVIR DISOPROXIL FUMARATE 300 MG TABLET PO SCH (08:36)
[2022-05-20] MEDS: LISINOPRIL (20MG) 20 MG TABLET PO SCH (08:36)
[2022-05-20] MEDS: hydrALAZINE HCL 50 MG TABLET PO SCH ×2 (08:37→16:05)
[2022-05-20] MEDS: OLANZAPINE ZYDIS 5 MG TAB.RAPDIS PO SCH ×2 (08:37→22:09)
[2022-05-20] MEDS: FUROSEMIDE 20 MG TABLET PO SCH (08:37)
--- NOTE | 2022-05-20 12:04 | NUR ---
Home Health: SW received a call from Sonia of pt's home health ([phone]) ([phone]) who stated that when pt is discharged they would want to continue services.
[2022-05-20] MEDS: clonazePAM 0.5 MG TABLET PO PRN (14:30)
--- NOTE | 2022-05-20 14:30 | NUR ---
NURSE NOTE: PT AGITATED AND CONFUSED AT THIS TIME. ATTEMPTED TO REDIRECT WITH PAID INTERNSHIP, BUT PT NOT REDIRECTABLE AT THIS TIME. KONOPIN ADMINISTERED ORDERED. PT ROBERT WELL. WILL CONT TO MONITOR.
--- NOTE | 2022-05-20 15:30 | NUR ---
NURSE NOTE: PT CALM AT THIS TIME. WORKING ON PUZZLE WITH OTHER PTS IN ACTIVITY ROOM. KLONOPIN EFFECTIVE AT THIS TIME. WILL CONT TO MONITOR.
[2022-05-20 16:00] VITALS: BP 148/70
[2022-05-20 21:38] VITALS: BP 117/81
[2022-05-20] MEDS: TEMAZEPAM 7.5 MG CAPSULE PO PRN (22:41)
--- NOTE | 2022-05-20 22:44 | NUR ---
RN NOTE: INSOMNIA PATIENT IS RESTLESS, GETTING AGITATED, UNABLE TO SLEEP. PRN RESTORIL 7.5 MG PO ADMINISTERED. WILL CONTINUE TO MONITOR FOR SAFETY AND BEHAVIOR.
[2022-05-21] MEDS: hydrALAZINE HCL 50 MG TABLET PO SCH ×3 (00:02→17:11)
[2022-05-21] MEDS: clonazePAM 0.5 MG TABLET PO PRN ×2 (01:50→13:09)
--- NOTE | 2022-05-21 01:51 | NUR ---
RN NOTE: ANXIETY PATIENT IS AGITATED, ANXIOUS, RESTLESS, UNCOOPERATIVE AND NON REDIRECTABLE AT THIS TIME. PRN KLONOPIN 0.25 MG PO ADMINISTERED ORDERED BY MD. WILL CONTINUE TO MONITOR FOR SAFETY AND BEHAVIOR.
[2022-05-21 08:00] VITALS: BP 150/73
[2022-05-21] MEDS: LISINOPRIL (20MG) 20 MG TABLET PO SCH (09:51)
[2022-05-21] MEDS: OLANZAPINE ZYDIS 5 MG TAB.RAPDIS PO SCH ×2 (09:51→22:00)
[2022-05-21] MEDS: METOPROLOL SUCCINATE 50 MG TAB.SR.24H PO SCH (09:52)
[2022-05-21] MEDS: FUROSEMIDE 20 MG TABLET PO SCH (09:52)
[2022-05-21] MEDS: TENOFOVIR DISOPROXIL FUMARATE 300 MG TABLET PO SCH (09:52)
[2022-05-21] MEDS: ACETAMINOPHEN 325 MG TABLET PO PRN (13:09)
[2022-05-21 16:00] VITALS: BP 149/73
--- NOTE | 2022-05-21 19:30 | NUR ---
GPS RN NOTES RECEIVED LAYING ON BED,A/O X2,CONFUSED,SIOUX ,FALL RISK,SON AT BEDSIDE.WILL CONTINUE TO MONITOR BEHAVIOR.
[2022-05-21 20:00] VITALS: BP 152/70
--- NOTE | 2022-05-21 20:20 | NUR ---
GPS RN NOTES SON AT BEDSIDE AND HE'S SAYING HES MOM HAS A LOT OF BRUISES ON THE ARM,CHECKED AND SEE AND IT WAS SMALL YELLOWISH FADING BRUISE,AND SOME SKIN DISCOLORATION DUE TO OLD AGE.TRIED TO TAKE PICTURES AND HE WAS ADVISED THAT TAKING PICTURES OR VIDEO IS NOT ALLOWED PER HOSPITAL POLICY,NURSING SECURITY GUARD DISPATCHER AND SECURITY MADE AWARE.
[2022-05-21] MEDS: BENZTROPINE MESYLATE (1 MG) 1 MG TABLET PO SCH (22:00)
--- NOTE | 2022-05-21 22:34 | NUR ---
GPS RN NOTES APPEARS TOO SLEEPY BUT AROUSABLE TO VERBAL AND PAINFUL STIMULI.BLOOD SUGAR CHECK 113.ABLE TO MOVE HIS ARMS.
[2022-05-22] MEDS: hydrALAZINE HCL 50 MG TABLET PO SCH ×4 (00:11→23:38)
[2022-05-22] MEDS: clonazePAM 0.5 MG TABLET PO PRN (04:23)
--- NOTE | 2022-05-22 04:23 | NUR ---
GPS RN NOTES AWAKE THIS TIME,APPEARS ANXIOUS,SCREAMING,SHE WANTS TO USE THE BEDPAN TO PEE.OFFERED BEDPAN,ABLE TO VOID ABOUT 500ML OF YELLOWISH URINE.,CALM DOWN AFTER THAT AND SHE WENT BACK TO SLEEP.
[2022-05-22] MEDS: LEVOTHYROXINE SODIUM 75 MCG TABLET PO SCH (06:28)
[2022-05-22 08:00] VITALS: BP 141/81
[2022-05-22] MEDS: BENZTROPINE MESYLATE (1 MG) 1 MG TABLET PO SCH ×2 (08:44→21:03)
[2022-05-22] MEDS: OLANZAPINE ZYDIS 5 MG TAB.RAPDIS PO SCH (08:45)
[2022-05-22] MEDS: FUROSEMIDE 20 MG TABLET PO SCH (08:46)
[2022-05-22] MEDS: METOPROLOL SUCCINATE 50 MG TAB.SR.24H PO SCH (08:46)
[2022-05-22] MEDS: LISINOPRIL (20MG) 20 MG TABLET PO SCH (08:46)
[2022-05-22] MEDS: TENOFOVIR DISOPROXIL FUMARATE 300 MG TABLET PO SCH (08:47)
--- NOTE | 2022-05-22 11:01 | NUR ---
WILBER Note: SW received a call from case finisher coordinator for pt Lobito ([phone]) who is concerned for pt and stated that pt has multiple cases of self-neglect. She expressed that she assumes that the son is lying about the DPOA paperworks and that it is fraud. WILBER explained that this pattern chart writer requested for son to fax so this pattern chart writer can review.
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
--- NOTE | 2022-05-22 14:57 | NUR ---
Staffs observed that pt. is with lip smacking. Dr. Prince notified and ordered to melissa/c Lakia.
[2022-05-22 16:00] VITALS: BP 148/59
--- NOTE | 2022-05-22 16:49 | NUR ---
HYDRALAZINE HELD PER MD ORDER. CHECKED BLOOD PRESSURE THREE TIMES. DIASTOLIC LOW (60>) ALL THREE TIMES. Addendum: 05/22/22 at 1650 by LARRY GONZALEZ RN MOST RECENT IS 126/56
--- NOTE | 2022-05-22 18:32 | NUR ---
PATIENT SEEN SLEEPING IN BED. NO S/S OF RESPIRATORY DISTRESS.
[2022-05-22 20:12] VITALS: BP 149/58
[2022-05-22 20:53] VITALS: BP 149/58
[2022-05-22] MEDS ORDERED: OLANZAPINE ZYDIS 5 MG TAB.RAPDIS PO SCH (22:00)
[2022-05-23] MEDS: clonazePAM 0.5 MG TABLET PO PRN ×3 (01:42→19:37)
--- NOTE | 2022-05-23 01:45 | NUR ---
RN NOTE: ANXIETY PATIENT IS AGITATED, ANXIOUS, RESTLESS, AND NON REDIRECTABLE AT THIS TIME. PRN KLONOPIN 0.25 MG PO ADMINISTERED ORDERED BY MD. WILL CONTINUE TO MONITOR FOR SAFETY AND BEHAVIOR.
[2022-05-23] MEDS: LEVOTHYROXINE SODIUM 75 MCG TABLET PO SCH (07:53)
[2022-05-23] MEDS: hydrALAZINE HCL 50 MG TABLET PO SCH ×2 (07:54→16:00)
[2022-05-23 08:00] VITALS: BP 166/70
[2022-05-23] MEDS: BENZTROPINE MESYLATE (1 MG) 1 MG TABLET PO SCH ×2 (08:02→21:07)
[2022-05-23] MEDS: METOPROLOL SUCCINATE 50 MG TAB.SR.24H PO SCH (08:02)
[2022-05-23] MEDS: FUROSEMIDE 20 MG TABLET PO SCH (08:03)
[2022-05-23] MEDS: LISINOPRIL (20MG) 20 MG TABLET PO SCH (08:03)
[2022-05-23] MEDS: TENOFOVIR DISOPROXIL FUMARATE 300 MG TABLET PO SCH (08:05)
--- NOTE | 2022-05-23 10:19 | NUR ---
RN-NOTES NOTED PATIENT VERY ANXIOUS FOCUS ON GOING HOME,AND CRYING GETTING OUT OF BED UN ASSISTED. REDIRECTED AND REORIENTED. KLONOPIN 0.25MG P.O GIVEN PRN ORDER. WILL CONT. MONITORING FOR SAFETY AND BEHAVIOR.
--- NOTE | 2022-05-23 11:00 | NUR ---
RN-NOTES PATIENT UP IN THE ISAÍAS CHAIR AWAKE,A/OX1 CALM QUIET,NO ACUTE DISTRESS NOTED.
[2022-05-23] MEDS: QUETIAPINE FUMARATE 25 MG TABLET PO SCH ×2 (11:01→17:32)
[2022-05-23] MEDS: ACETAMINOPHEN 325 MG TABLET PO PRN (11:36)
--- NOTE | 2022-05-23 11:36 | NUR ---
RN-NOTES NOTED PATIENT CRYING WITH FACIAL GRIMACING,STATED" MY WHOLE BODY HURTS". TYLENOL 650MG P.O GIVEN PRN ORDER. WILL CONT. MONITORING FOR SAFETY AND BEHAVIOR
--- NOTE | 2022-05-23 12:40 | NUR ---
RN-NOTES PATIENT LYING IN BED INTERMITTENTLY SLEEPING,NO ACUTE DISTRESS NOTED.
[2022-05-23 16:00] VITALS: BP 122/58
--- NOTE | 2022-05-23 18:05 | NUR ---
RN-NOTES PATIENT IN THE HALLWAY WITH THE TELECOMMUNICATIONS SWITCH TECHNICIAN NEXT TO HER ROOM UP IN [facility] AWAKE ,A/OX1. PATIENT'S SON ( AL) CAME IN AND ASKING THE PATIENT IF SHE EAT DINNER THE TELECOMMUNICATIONS SWITCH TECHNICIAN TOLD THE SON THAT THE TELECOMMUNICATIONS SWITCH TECHNICIAN PERSONALLY ASSISTED HER MOM WITH HER DINNER. SON SUDDENLY MAD AND STATED THAT THE DISCOLORATION ON HIS MOM HANDS WAS NEW AND THAT HER MOM DIDN'T HAVE IT BEFORE AND HE THREATENED THAT HE WILL BRING IT TO COURT. THE SON CONTINUE TO WHEELED HIS MOM INSIDE THE ROOM. THE TELECOMMUNICATIONS SWITCH TECHNICIAN INTERVENE THAT HE CANNOT BRING HIS MOM INSIDE THE ROOM THAT HE CAN ONLY TALK IN THE HALLWAY WITH THE TELECOMMUNICATIONS SWITCH TECHNICIAN SUPERVISION . AL SUDDENLY SCREAM AND YELL AT THE TELECOMMUNICATIONS SWITCH TECHNICIAN WITH THREATENING VOICE,VERBALLY ABUSIVE, TELECOMMUNICATIONS SWITCH TECHNICIAN CALLED THE CHARGE NURSE BUT AL CONTINUE YELLING AND THREATENING THE STAFF. SECURITY WAS CALLED AND CAME INTO THE UNIT BUT STILL AL YELLING AT THE SECURITY WITH THREATENING VOICE USING FOUL LANGUAGE.ANOTHER SUPERVISING PRODUCER MANGE TO TALK AND WALK THE AL OUT THE UNIT. CABLE INSPECTOR WAS MADE AWARE.
--- NOTE | 2022-05-23 19:41 | NUR ---
RN NOTES: ANXIETY PATIENT IS AGITATED, ANXIOUS, RESTLESS,YELLING SCREAMING AND REFUSED TO STAYING IN BED, AND NON REDIRECTABLE AT THIS TIME. PRN KLONOPIN 0.25 MG PO ADMINISTERED ORDERED BY MD. WILL CONTINUE TO MONITOR FOR SAFETY AND BEHAVIOR.
--- NOTE | 2022-05-23 20:09 | NUR ---
RN NOTES: RECEIVED PATIENT SIITING UP IN ISAÍAS CHAIR AND WATCHING TV IN ACTIVITY ROOM, IN NO APPARENT DISTRESS NOTED. PATIENT REMAINS EXTREMELY CONFUSED, DISORGANIZED, ANXIOUS, RESTLESS EASILY.YELLING SCREAMING REFUSED TO STAYING IN BED UNCOOPERATIVE WITH CARE,NONREDIRECTABLE BUT REDIRECTIONS PROVIDED, HIGH FALL RISKS. SAFETY PRECAUTIONS MAINTAINED. WILL CONTINUE TO MONITOR Q15MIN ROUNDS FOR SAFETY AND BEHAVIOR.
[2022-05-23 20:22] VITALS: BP 106/59
[2022-05-24] MEDS: clonazePAM 0.5 MG TABLET PO PRN (03:28)
--- NOTE | 2022-05-24 03:30 | NUR ---
RN NOTES: ANXIETY PATIENT IS AGITATED, ANXIOUS, RESTLESS,YELLING SCREAMING AND BANGING ON THE BED SIDE RAILS, CLIMBING OUT THE BED, AND NON REDIRECTABLE AT THIS TIME. PRN KLONOPIN 0.25 MG PO ADMINISTERED ORDERED BY . WILL CONTINUE TO MONITOR FOR SAFETY AND BEHAVIOR.
[2022-05-24] MEDS: LEVOTHYROXINE SODIUM 75 MCG TABLET PO SCH ×2 (07:28→09:30)
[2022-05-24 08:00] VITALS: BP 154/83
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
[2022-05-24] MEDS: TENOFOVIR DISOPROXIL FUMARATE 300 MG TABLET PO SCH (09:27)
[2022-05-24] MEDS: QUETIAPINE FUMARATE 25 MG TABLET PO SCH ×2 (09:30→16:58)
[2022-05-24] MEDS: BENZTROPINE MESYLATE (1 MG) 1 MG TABLET PO SCH ×2 (09:30→22:26)
[2022-05-24] MEDS: FUROSEMIDE 20 MG TABLET PO SCH (09:30)
[2022-05-24] MEDS: hydrALAZINE HCL 50 MG TABLET PO SCH ×4 (09:31→23:47)
[2022-05-24] MEDS: LISINOPRIL (20MG) 20 MG TABLET PO SCH (09:31)
[2022-05-24] MEDS: METOPROLOL SUCCINATE 50 MG TAB.SR.24H PO SCH (09:32)
[2022-05-24 16:00] VITALS: BP 143/53
[2022-05-24] MEDS: ENSURE ENLIVE CHOC 237 ML CAN PO SCH (16:58)
--- NOTE | 2022-05-24 19:55 | NUR ---
RN NOTE RECEIVED PATIENT SITING UP IN ISAÍAS CHAIR. NO APPARENT DISTRESS NOTED. PATIENT REMAINS EXTREMELY CONFUSED, DISORGANIZED, ANXIOUS, RESTLESS, EASILY SCREAMING. REFUSES TO STAY IN BED, UNCOOPERATIVE WITH CARE. NON REDIRECTABLE BUT REDIRECTIONS PROVIDED. HIGH FALL RISKS. SAFETY PRECAUTIONS MAINTAINED. WILL CONTINUE TO MONITOR PT FOR SAFETY AND BEHAVIOR.
[2022-05-24 20:14] VITALS: BP 121/47
--- NOTE | 2022-05-25 | NUR ---
RN NOTE PT'S BP: 130/53, P: 63. PT ADMINISTERED APRESOLINE.
[2022-05-25] MEDS: TEMAZEPAM 7.5 MG CAPSULE PO PRN (02:28)
--- NOTE | 2022-05-25 02:28 | NUR ---
RN NOTE PT UNABLE TO SLEEP. RESTORIL ADMINISTERED TO PT FOR INSOMNIA.
--- NOTE | 2022-05-25 07:00 | NUR ---
RN NOTE PT LEFT RESTING IN BED. NO SOB, NO ACUTE DISTRESS NOTED. ALL NEEDS ATTENDED. ALL MEDS GIVEN ON TIMELY MANNER. PT IS HIGH FALL RISK. SAFETY MEASURES IMPLEMENTED. WILL ENDORSE TO AM SHIFT NURSE FOR SONAL.
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
[2022-05-25 08:00] VITALS: BP 141/63
--- NOTE | 2022-05-25 08:38 | NUR ---
SNF Referral: WILBER sent clinicals to Shen jay from [facility] ([phone]) for placement. WILBER sent H & P, progress notes, and medication list.
[2022-05-25] MEDS: ENSURE ENLIVE CHOC 237 ML CAN PO SCH ×2 (09:00→16:47)
[2022-05-25] MEDS: hydrALAZINE HCL 50 MG TABLET PO SCH ×3 (09:00→23:08)
[2022-05-25] MEDS: BENZTROPINE MESYLATE (1 MG) 1 MG TABLET PO SCH ×2 (09:27→21:19)
[2022-05-25] MEDS: FUROSEMIDE 20 MG TABLET PO SCH (09:27)
[2022-05-25] MEDS: LISINOPRIL (20MG) 20 MG TABLET PO SCH (09:28)
[2022-05-25] MEDS: QUETIAPINE FUMARATE 25 MG TABLET PO SCH ×2 (09:29→16:46)
[2022-05-25] MEDS: METOPROLOL SUCCINATE 50 MG TAB.SR.24H PO SCH (09:30)
[2022-05-25] MEDS: TENOFOVIR DISOPROXIL FUMARATE 300 MG TABLET PO SCH (09:30)
--- NOTE | 2022-05-25 13:43 | NUR ---
RN-CO: PATIENT IS CONFUSED AND DISORGANIZED, HER THOUGHTS ARE TANGENTIAL. SHE IS RESPONDING TO INTERNAL STIMULI. SHE DENIED PAIN AND DISCOMFORTS. WE OFFERED HER FOOD AND FLUIDS EVERY NOW AND THEN ASIDE FROM MEAL. WE WILL CONTINUE TO MONITOR AND WE WILL ANTICIPATE HER NEEDS.
[2022-05-25 16:00] VITALS: BP 144/62
[2022-05-25 20:13] VITALS: BP 131/79
[2022-05-26] MEDS: LEVOTHYROXINE SODIUM 75 MCG TABLET PO SCH (06:30)
[2022-05-26 08:00] VITALS: BP 140/65
[2022-05-26] MEDS: METOPROLOL SUCCINATE 50 MG TAB.SR.24H PO SCH (08:54)
[2022-05-26] MEDS: hydrALAZINE HCL 50 MG TABLET PO SCH ×2 (08:55→16:14)
[2022-05-26] MEDS: ENSURE ENLIVE CHOC 237 ML CAN PO SCH ×2 (08:55→16:14)
[2022-05-26] MEDS: BENZTROPINE MESYLATE (1 MG) 1 MG TABLET PO SCH ×2 (08:56→21:05)
[2022-05-26] MEDS: LISINOPRIL (20MG) 20 MG TABLET PO SCH (08:56)
[2022-05-26] MEDS: FUROSEMIDE 20 MG TABLET PO SCH (08:56)
[2022-05-26] MEDS: QUETIAPINE FUMARATE 25 MG TABLET PO SCH ×2 (08:56→16:14)
[2022-05-26] MEDS: TENOFOVIR DISOPROXIL FUMARATE 300 MG TABLET PO SCH (09:01)
--- NOTE | 2022-05-26 11:09 | NUR ---
Court Notification: SW attempted to contact pt's son Raul ([phone]) to notify of [phone], he was unavailable.
--- NOTE | 2022-05-26 11:10 | NUR ---
Court Hearing: Patient's court hearing for [id number] was today and it was upheld for GD.
--- NOTE | 2022-05-26 13:57 | NUR ---
RN-NOTES RECEIVED A T.O ORDER FROM DR. ARNOLD OF NEURO CONSULT .DR. SHIRLEY MADE AWARE.
--- NOTE | 2022-05-26 15:42 | NUR ---
RN-NOTES RECEIVED T.O ORDER FROM DR. ARNOLD OF DENIAL OF VISITATION OF SON DUE TO AGGRESSIVE BEHAVIOR TOWARDS STAFF.
[2022-05-26 16:00] VITALS: BP 134/60
--- NOTE | 2022-05-26 18:06 | NUR ---
RN NOTES PATIENT SITTING IN THE CHAIR AT THE DAY ROOM, EATING DINNER, CONFUSED AND DISORGANIZED. SHE DENIED PAIN, NO FACIAL GRIMACING NOTED AND DISCOMFORTS. SAFETY MEASURES IN PLACE. WE WILL CONTINUE TO MONITOR AND WE WILL ANTICIPATE HER NEEDS.
[2022-05-26 19:48] VITALS: BP 124/61
[2022-05-27] MEDS: hydrALAZINE HCL 50 MG TABLET PO SCH ×3 (00:11→16:00)
[2022-05-27] MEDS: LEVOTHYROXINE SODIUM 75 MCG TABLET PO SCH (06:58)
[2022-05-27 08:00] VITALS: BP 150/68
[2022-05-27] MEDS: ENSURE ENLIVE CHOC 237 ML CAN PO SCH ×2 (08:06→16:34)
[2022-05-27] MEDS: BENZTROPINE MESYLATE (1 MG) 1 MG TABLET PO SCH ×2 (08:08→21:11)
[2022-05-27] MEDS: QUETIAPINE FUMARATE 25 MG TABLET PO SCH ×2 (08:09→16:34)
[2022-05-27] MEDS: METOPROLOL SUCCINATE 50 MG TAB.SR.24H PO SCH (08:09)
[2022-05-27] MEDS: FUROSEMIDE 20 MG TABLET PO SCH (08:09)
[2022-05-27] MEDS: LISINOPRIL (20MG) 20 MG TABLET PO SCH (08:10)
[2022-05-27] MEDS: TENOFOVIR DISOPROXIL FUMARATE 300 MG TABLET PO SCH (08:24)
--- NOTE | 2022-05-27 10:31 | NUR ---
SNF Contact: SW received a call from Shen jay from [facility] ([phone]) who stated pt is accepted.
--- NOTE | 2022-05-27 10:48 | NUR ---
WILBER Note: WILBER notified APS employment case manager, Site Interpreter, Artemio ([phone]) and Pedro coordinator ([phone]) of pts discharge. Notified that pt is accepted at [facility] and ct day 05/29.
[2022-05-27 16:00] VITALS: BP 122/58
[2022-05-27 16:12] LABS: THYROID STIMULATING HORMONE 0.529 uIU/mL (0.358-3.74)
--- NOTE | 2022-05-27 16:39 | NUR ---
RN-NOTES RECEIVED T.O ORDER FROM DR. ARNOLD OF DENIAL OF VISITATION OF SON DUE TO AGGRESSIVE BEHAVIOR TOWARDS STAFF.
--- NOTE | 2022-05-27 19:24 | NUR ---
RN-NOTES PATIENT ATTENDED GROUPS WITH MINIMAL PARTICIPATION A/O X2 FORGETFUL COMPLIANT WITH MEDICATIONS. NEEDS MODERATE ASSIST WITH ADL'S. NOTED WITH EPISODE OF CALLING HER SON'S NAME. REDIRECTED PATIENT , COOPERATIVE WITH STAFF AND CARE. ALL NEEDS ATTENDED AND ANTICIPATED. WILL ENDORSE TO INCOMING NURSE FOR THE CONTINUITY OF CARE.
[2022-05-27 19:57] VITALS: BP 136/70
--- NOTE | 2022-05-27 20:48 | NUR ---
RN NOTES: RECEIVED PATIENT SIITING UP IN ISAÍAS CHAIR AND WATCHING TV IN ACTIVITY ROOM, IN NO APPARENT DISTRESS NOTED. PATIENT REMAINS EXTREMELY CONFUSED, DISORGANIZED, ANXIOUS, RESTLESS EASILY.YELLING SCREAMING REFUSED TO STAYING IN BED, UNCOOPERATIVE WITH CARE,NONREDIRECTABLE BUT REDIRECTIONS PROVIDED, HIGH FALL RISKS. SAFETY PRECAUTIONS MAINTAINED. WILL CONTINUE TO MONITOR Q15MIN ROUNDS FOR SAFETY AND BEHAVIOR.
[2022-05-28] MEDS: LEVOTHYROXINE SODIUM 75 MCG TABLET PO SCH (07:06)
[2022-05-28 08:00] VITALS: BP 150/62
[2022-05-28] MEDS: hydrALAZINE HCL 50 MG TABLET PO SCH ×3 (08:32→16:21)
[2022-05-28] MEDS: ENSURE ENLIVE CHOC 237 ML CAN PO SCH ×2 (08:32→16:21)
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
[2022-05-28] MEDS: TENOFOVIR DISOPROXIL FUMARATE 300 MG TABLET PO SCH (09:39)
[2022-05-28] MEDS: LISINOPRIL (20MG) 20 MG TABLET PO SCH (09:40)
[2022-05-28] MEDS: FUROSEMIDE 20 MG TABLET PO SCH (09:40)
[2022-05-28] MEDS: QUETIAPINE FUMARATE 25 MG TABLET PO SCH ×2 (09:40→16:22)
[2022-05-28] MEDS: BENZTROPINE MESYLATE (1 MG) 1 MG TABLET PO SCH ×2 (09:40→21:11)
[2022-05-28] MEDS: METOPROLOL SUCCINATE 50 MG TAB.SR.24H PO SCH (09:41)
[2022-05-28 16:00] VITALS: BP 134/69
--- NOTE | 2022-05-28 18:13 | NUR ---
RN-NOTES PATIENT IN BED A/O X2 ,FORGETFUL,COOPERATIVE WITH THE STAFF AND ACRE. COMPLIANT WITH MEDICATIONS. NEEDS MODERATE ASSIST WITH ADL'S.PATIENT ON PT THERAPY. ALL NEEDS ATTENDED AND ANTICIPATED. WILL ENDORSE TO INCOMING NURSE FOR THE CONTINUITY OF CARE.
--- NOTE | 2022-05-28 19:39 | NUR ---
RN NOTES: RECEIVED PATIENT SIITING UP IN ISAÍAS CHAIR AND WATCHING TV IN ACTIVITY ROOM, IN NO APPARENT DISTRESS NOTED. PATIENT REMAINS EXTREMELY CONFUSED, DISORGANIZED, EASILY AGITATED, COOPERATIVE WITH CARE,NEEDS FREQUENTLY REDIRECTIONS, HIGH FALL RISKS. SAFETY PRECAUTIONS MAINTAINED. WILL CONTINUE TO MONITOR Q15MIN ROUNDS FOR SAFETY AND BEHAVIOR.
[2022-05-28 20:00] VITALS: BP 109/59
[2022-05-29] MEDS: LEVOTHYROXINE SODIUM 75 MCG TABLET PO SCH (06:55)
--- NOTE | 2022-05-29 07:57 | NUR ---
WILBER Discharge Note: Patient will be discharged to [facility] located at [address] [place] [address]; ([phone]). Please arrange transportation at 12PM. Abdullahi Shen ([phone]) accepted pt and stated pt is welcomed today. Pt is alert and oriented x1. Pt denies suicidal or homicidal ideation. Pt denies visual/auditory hallucinations. WILBER contacted son Raul ([phone]) and he was unavailable. WILBER notified APS die storage worker, Cardiac Rn, Artemio ([phone]) and Pedro coordinator ([phone]) of pts discharge. Pt will follow up with Javascript Programmer, Dr. White located at [address] [facility] [address] [address]; ([phone]) and pt will follow up with Psychiatrist, Dr. Winston located at [address] [facility] [address], [place] [address]; ([phone]). Pt presents with euthymic mood and congruent affect. Addendum: 05/29/22 at 1238 by WILBER RUGGIERO Patient will be rerouted to Patient will be discharged to [facility] located at [address] [place] [address]; due to [facility] on lockdown for KARLY.
[2022-05-29 08:00] VITALS: BP 156/70
[2022-05-29] MEDS: LISINOPRIL (20MG) 20 MG TABLET PO SCH (08:07)
[2022-05-29] MEDS: FUROSEMIDE 20 MG TABLET PO SCH (08:07)
[2022-05-29] MEDS: ENSURE ENLIVE CHOC 237 ML CAN PO SCH (08:07)
[2022-05-29] MEDS: QUETIAPINE FUMARATE 25 MG TABLET PO SCH (08:07)
[2022-05-29 08:08] VITALS: BP 156/70
[2022-05-29] MEDS: hydrALAZINE HCL 50 MG TABLET PO SCH ×2 (08:08)
[2022-05-29] MEDS: METOPROLOL SUCCINATE 50 MG TAB.SR.24H PO SCH (08:08)
[2022-05-29] MEDS: BENZTROPINE MESYLATE (1 MG) 1 MG TABLET PO SCH (08:09)
[2022-05-29] MEDS: clonazePAM 0.5 MG TABLET PO PRN ×2 (09:03→09:59)
[2022-05-29] MEDS: TENOFOVIR DISOPROXIL FUMARATE 300 MG TABLET PO SCH (09:12)
--- NOTE | 2022-05-29 09:12 | NUR ---
Dr. Prince gave an order to D/C hold and D/C to [facility] and to follow up with psych and medical doctors. Dr. Prince ordered to continue same meds including prn. Dr. Stone made aware of the discharge and reconciled meds to continue at the facility. Addendum: 05/29/22 at 1156 by SAQIB MAHONEY RN Pt. is for d/c to [facility].
--- NOTE | 2022-05-29 09:58 | NUR ---
NURSE NOTE: PT AGGITATED AT THIS TIME, BANGING ON TABLE. ATTEMPTED TO ADMINISTER KLONOPIN EARLIER, BUT PT THREW IT ON FLOOR. WASTED PREVIOS KLONOPIN WITH RN LORENZO Willingham PT TOOK KLONOPIN PT NOW. ROBERT WELL. WILL CONT TO MONITOR.
--- NOTE | 2022-05-29 10:58 | NUR ---
NURSE NOTE: PT CALM AT THIS TIME. KLONOPIN EFFECTIVE AT THIS TIME. WILL CONT TO MONITOR.
--- NOTE | 2022-05-29 13:30 | NUR ---
NURSE NOTE: 86YEAR OLD FEMALE DISCHARGED OT [facility] IN STABLE [place]. COMPLIANT WITH MEDS, COOPERATIVE WITH TREATMENT PLANS. PT DENIES SI/HI AND INSTRUCTED TO GO TO THE NURSE OR CALL 911 IF DEVELOPING SI/HI. BEHAVIOR IMPROVED, PSYCHIATRIC TX PLANS MET, MEDICAL TX PLANS DEFERRED FOR CONTINUAL MONITORING. DR ARNOLD DISCONTINUED HOLD. BOTH DR ARNOLD AND DR AYALA CLEARED AND DISCHARGED PT. EDUCATED PT ABOUT AFTER CARE PLAN AND COPY PROVIDED. RETURNED PERSONAL BELONGINGS TO PT. MEDICATIONS RECONCILED WITH DR ARNOLD AND DR AYALA. REPORT GIVEN TO BHARATH CABRERA AT [facility] FOR CONTINUITY OF CARE. PT UNABLE TO SIGN DISCHARGE PAPERWORK. PICTURES OF PREVIOUS DISCOLORATION TAKEN AND DOCUMENTED IN CHART. PT TO F/U WITH PSYCH DR MONROY AND JIG AND FIXTURE MAKER DR DEY NEEDED. PT LEFT THE UNIT AT 1330 VIA AMBULANCE.
--- NOTE | 2022-05-29 13:47 | NUR ---
WILBER Family Contact: WILBER contacted son Raul ([phone]) and he was unavailable to notify of dc.
== END 2022-05-29 13:30 | DRG 885 ==
LOC: ER 16:35 → GPS 19:56
PROVIDERS: ADMIT Psychiatry & Neurology Psychiatry; ATTEND Internal Medicine
DX: F20.9 Schizophrenia, unspecified (principal); I11.0 Hypertensive heart disease with heart failure; G93.41 Metabolic encephalopathy; F02.818 Dementia in other diseases classified elsewhere, unspecified severity, with other behavioral disturbance; G30.9 Alzheimer's disease, unspecified; I50.9 Heart failure, unspecified; Z79.899 Other long term (current) drug therapy; Z73.6 Limitation of activities due to disability; H91.90 Unspecified hearing loss, unspecified ear; R79.89 Other specified abnormal findings of blood chemistry; R45.1 Restlessness and agitation
CPT/HCPCS: 36415; 70450-TC; 80048-TC; 80061-TC; 80076-TC; 81001; 82565-TC; 82607-TC; 82962-TC; 84207; 84443-TC; 85025-TC; 87081-TC; 97112-TC; 97116-TC; 97530-TC; C9803; G0480; J1630